=== PATIENT | female | born 1995 | race Asian ===

== ENCOUNTER 2016-12-14 12:44 | Emergency (ER) | payer OTHER ==
[2016-12-14 13:20] LABS: MEAN CORPUSCULAR HEMOGLOBIN 29.7 pg (27.0-33.0); MEAN CORPUSCULAR HGB CONC 34.3 g/dl (32.0-36.5); MEAN CORPUSCULAR VOLUME 86.4 fl (80.0-96.0); RED CELL DISTRIBUTION WIDTH 11.8 % (11.5-14.5)
[2016-12-14 13:49] LABS: ANION GAP 8 MEQ/L (8-16); BLOOD UREA NITROGEN 13 MG/DL (7-18); CARBON DIOXIDE LEVEL 26 MEQ/L (21-32); CHLORIDE LEVEL 106 MEQ/L (98-107); CREATININE FOR GFR 0.84 MG/DL (0.55-1.02); GLUCOSE, FASTING 92 MG/DL (70-105); POTASSIUM SERUM 3.9 MEQ/L (3.5-5.1); SODIUM LEVEL 140 MEQ/L (136-145)
[2016-12-14 13:58] LABS: CONTROL LINE HCG INT CTR LINE PRESENT
[2016-12-14 14:37] LABS: ALBUMIN/GLOBULIN RATIO 0.91 (1.00-1.93); ALKALINE PHOSPHATASE 105 U/L (45-117); ALT/SGPT 17 U/L (12-78); AST/SGOT 17 U/L (15-37); BILIRUBIN,DIRECT < 0.1 MG/DL (0.0-0.2); BILIRUBIN,TOTAL 0.3 MG/DL (0.2-1.0); TOTAL PROTEIN 8.4 GM/DL (6.4-8.2)
--- NOTE | 2016-12-14 14:44 | REP ---
Clinical: Epigastric and abdominal pain. Technique: Upright view of the chest with supine and upright views of the abdomen and pelvis. Findings: Frontal upright view of the chest demonstrates no acute cardiopulmonary process or free air below the diaphragm to suspect pneumoperitoneum. Supine and upright views of the abdomen and pelvis demonstrate nonspecific bowel gas pattern without obstruction or perforation. No organomegaly. No abnormal calcifications. Skeletal structures normal for age. Impression: Nonspecific bowel gas pattern. Signed by Iván Rock MD 12/14/2016 02:36 P
[2016-12-14] MEDS ORDERED: MAGNESIUM CITRATE 300 ML BTL As Ordered ONE (15:05)
--- NOTE | 2016-12-14 15:13 | EDDOCDS ---
Nurse's Notes [facility] Name: Camilla Mai Age: 21 yrs Sex: Female : 1995 Arrival Date: 12/14/2016 Time: 12:44 Bed 9 Private MD: NBA Gamez Diagnosis: Abdominal and pelvic pain Presentation: 12/14 12:49 Presenting complaint: Patient states: that she has had lower abd pain for the past ms18 week. Pt c/o nausea. Pt also states that she hasn't had her period yet and is concerned about . Pt states that she had a miscarriage last July and the at home tests have been neg. Risk factors: the patient reports no vaginal bleeding. Adult Sepsis Screening: The patient does not have new or worsening altered mentation. Patient's respiratory rate is less than 22. Systolic blood pressure is greater than 100. Patient has a qSOFA score of 0- Negative Sepsis Screen. Suicide/Homicide risk assessment- the patient denies having any suicidal and/or homicidal ideations and does not present with any other emotional, behavioral or mental health complaints. 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 Transition of care: patient was not received from another setting of care. 12:49 Acuity: YAKELIN Level 3 ms18 12:49 Method Of Arrival: Walkin/Carried/Asstd ms18 Triage Assessment: 12:52 General: Appears in no apparent distress, uncomfortable, Behavior is appropriate for ms18 age, cooperative. Pain: Location: right lower quadrant and left lower quadrant Pain currently is 8 out of 10 on a pain scale. HIV screening NA for this visit Offered previously. The patient is triaged at the bedside. See Assessment in Nurses Notes section of ED record. Neurological: No deficits noted. Respiratory: Airway is patent Respiratory effort is even, unlabored. GI: Abdomen is non- distended Reports lower abdominal pain, nausea. Derm: Skin is pink, warm & dry. 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 none - PMHx: none; - PSHx: D & C; - Social history: Smoking status: Patient states was never smoker of tobacco. No barriers to communication noted, The patient speaks fluent Solomon Islander. - Family history: Not pertinent. - : The pt / caregiver states he / she is not on anticoagulants. Home medication list is obtained from the patient. - Exposure Risk Screening:: None identified. Screenin:19 Screening information is obtained from the patient. Fall risk: No risks identified. kc3 Assistance ADL's: requires no assistance with activities of daily living. Abuse/DV Screen: The patient / caregiver reports he/she is: not in a situation that causes fear, pain or injury. Nutritional screening: No deficits noted. home support is adequate. 15:12 Advance Directives: Currently, there is no health care proxy. kc3 Assessment: 13:18 General: Appears in no apparent distress, comfortable, Behavior is appropriate for age, kc3 cooperative. Pain: Location: left lower quadrant and right lower quadrant Pain currently is 8 out of 10 on a pain scale. Neurological: Reports dizziness. Respiratory: Respiratory effort is even, unlabored. GI: Abdomen is flat, Bowel sounds present X 4 quads. Abd is soft and non tender Reports nausea. Derm: Skin is normal. 15:10 General: Appears in no apparent distress, comfortable, Behavior is appropriate for age, kc3 cooperative. Pain: Location: left lower quadrant and right lower quadrant. Respiratory: Respiratory effort is even, unlabored. Derm: Skin is normal. Vital Signs: 12:45 BP 131 / 78 RA Sitting (auto/reg); Pulse 69; Resp 20; Temp 98.4(O); Pulse Ox 98% on jrd R/A; Weight 64.41 kg (R); Height 5 ft. 2 in. (157.48 cm) (R); Pain 8/10; 15:11 BP 117 / 68; Pulse 69; Resp 18; Temp 98(O); Pulse Ox 98% on R/A; kc3 12:45 Body Mass Index 25.97 (64.41 kg, 157.48 cm) [facility] Vitals: 12:45 Log In Time: December 14, 2016 at 12:41. [facility] ED Course: 12:45 Patient visited by Cedric Diallo PCA. jrd 12:45 NBA Gamez is Private Physician. jrd 12:45 Patient moved to Waiting jrd 12:47 Patient visited by Cedric Diallo PCA. jrd 12:47 Patient moved to Pre RCE jrd 12:52 Triage Initiated ms18 13:02 [facility] ke 13:02 Patient visited by Dion Sales FNP. ke 13:02 Patient visited by Dion Sales FNP. ke 13:02 Patient moved to 9 ms18 13:09 Patient visited by Raman Pride. jml1 13:15 Urine Culture Sent. kc3 13:15 UA Sent. kc3 13:15 HCG,Serum Qualitative Sent. kc3 13:15 BMP Sent. kc3 13:15 CBC Sent. kc3 13:19 The patient / caregiver is instructed regarding the plan of care and ED course. kc3 13:39 Patient visited by Dion Sales FNP. ke 14:23 Patient visited by Dion Sales FNP. ke 14:42 [facility] [place] was scanned into [employer] and attached to record. mm15 14:47 Abdomen, Flat\E\Upright,PA Chest Returned. EDMS 14:49 Patient visited by Dion Sales FNP. ke 14:49 Patient name changed from Joninamarie\S\\S\Mai\S\ to Joninamarie\S\ \S\Mai. EDMS 14:52 Susan Baca, OB is Referral Physician. ke 15:12 No IV's were initiated during this patient's visit. No procedures done that require kc3 assistance. Administered Medications: 15:10 Drug: Magnesium Citrate 300 ml [magnesium citrate oral solution (300 mL)] Route: PO; kc3 Point of Care Testing: Urine : 13:09 hCG Reading: Negative; jml1 Ranges: Order Results: Lab Order: CBC; SPEC'M 12/14/16 13:15 Test: WHITE BLOOD COUNT; Value: 8.0; Range: 4.0-10.0; Units: K/mm3; Status: F Test: RED BLOOD COUNT; Value: 4.35; Range: 4.00-5.40; Units: M/mm3; Status: F Test: HEMOGLOBIN; Value: 12.9; Range: 12.0-16.0; Units: g/dl; Status: F Test: HEMATOCRIT; Value: 37.6; Range: 36.0-47.0; Units: %; Status: F Test: MEAN CORPUSCULAR VOLUME; Value: 86.4; Range: 80.0-96.0; Units: fl; Status: F Test: MEAN CORPUSCULAR HEMOGLOBIN; Value: 29.7; Range: 27.0-33.0; Units: pg; Status: F Test: MEAN CORPUSCULAR HGB CONC; Value: 34.3; Range: 32.0-36.5; Units: g/dl; Status: F Test: RED CELL DISTRIBUTION WIDTH; Value: 11.8; Range: 11.5-14.5; Units: %; Status: F Test: PLATELET COUNT, AUTOMATED; Value: 308; Range: 150-450; Units: k/mm3; Status: F Lab Order: [facility]; SPEC'M 12/14/16 13:15 Test: GLUCOSE, FASTING; Value: 92; Range: 70-105; Units: MG/DL; Status: F Test: BLOOD UREA NITROGEN; Value: 13; Range: 7-18; Units: MG/DL; Status: F Test: CREATININE FOR GFR; Value: 0.84; Range: 0.55-1.02; Units: MG/DL; Status: F Test: SODIUM LEVEL; Value: 140; Range: 136-145; Units: MEQ/L; Status: F Test: POTASSIUM SERUM; Value: 3.9; Range: 3.5-5.1; Units: MEQ/L; Status: F Test: CHLORIDE LEVEL; Value: 106; Range: 98-107; Units: MEQ/L; Status: F Test: CARBON DIOXIDE LEVEL; Value: 26; Range: 21-32; Units: MEQ/L; Status: F Test: ANION GAP; Value: 8; Range: 8-16; Units: MEQ/L; Status: F Test: CALCIUM LEVEL; Value: 9.0; Range: 8.5-10.1; Units: MG/DL; Status: F Test: AST/SGOT; Range: 15-37; Units: U/L; Status: I Test: ALT/SGPT; Range: 12-78; Units: U/L; Status: I Test: ALKALINE PHOSPHATASE; Range: 45-117; Units: U/L; Status: I Test: BILIRUBIN,TOTAL; Range: 0.2-1.0; Units: MG/DL; Status: I Test: BILIRUBIN,DIRECT; Range: 0.0-0.2; Units: MG/DL; Status: I Test: TOTAL PROTEIN; Range: 6.4-8.2; Units: GM/DL; Status: I Test: ALBUMIN; Range: 3.2-5.2; Units: GM/DL; Status: I Test: ALBUMIN/GLOBULIN RATIO; Range: 1.00-1.93; Status: I Lab Order: HCG,Serum Qualitative; SPEC' 12/14/16 13:15 Test: HCG, SERUM QUALITATIVE; Value: NEGATIVE; Range: NEGATIVE; Status: F Lab Order: UA; SPEC' 12/14/16 13:15 Test: APPEARANCE, URINE; Value: CLEAR; Range: CLEAR; Status: F Test: COLOR, URINE; Value: YELLOW; Range: YELLOW; Status: F Test: PH,URINE; Value: 6.0; Range: 5.0-9.0; Units: UNITS; Status: F Test: SPECIFIC GRAVITY URINE AUTO; Value: 1.017; Range: 1.002-1.035; Status: F Test: PROTEIN, URINE AUTO; Value: NEGATIVE; Range: NEGATIVE; Units: mg/dL; Status: F Test: GLUCOSE, URINE (UA) AUTO; Value: NEGATIVE; Range: NEGATIVE; Units: mg/dL; Status: F Test: KETONE, URINE AUTO; Value: NEGATIVE; Range: NEGATIVE; Units: mg/dL; Status: F Test: UROBILINOGEN, URINE AUTO; Value: 0.2; Range: 0.0-2.0; Units: mg/dL; Status: F Test: BILIRUBIN, URINE AUTO; Value: NEGATIVE; Range: NEGATIVE; Status: F Test: NITRITE, URINE AUTO; Value: NEGATIVE; Range: NEGATIVE; Status: F Test: LEUKOCYTE ESTERASE, URINE AUTO; Value: NEGATIVE; Range: NEGATIVE; Status: F Test: BLOOD, URINE BLOOD; Value: NEGATIVE; Range: NEGATIVE; Status: F Test: WBC, URINE AUTO; Value: 0; Range: 0-3; Units: /HPF; Status: F Test: RBC, URINE AUTO; Value: 1; Range: 0-3; Units: /HPF; Status: F Test: BACTERIA, URINE AUTO; Value: NEGATIVE; Range: NEGATIVE; Status: F Test: SQUAMOUS EPITHELIAL CELL UR AU; Value: 0; Range: 0-6; Units: /HPF; Status: F Test: MUCUS, URINE; Value: SMALL; Range: NEGATIVE; Status: F Test: HYALINE CAST, URINE AUTO; Value: 0; Range: 0-1; Units: /LPF; Status: F Lab Order: LIVER PROFILE; SPEC'M 12/14/16 13:15 Test: AST/SGOT; Value: 17; Range: 15-37; Units: U/L; Status: F Test: ALT/SGPT; Value: 17; Range: 12-78; Units: U/L; Status: F Test: ALKALINE PHOSPHATASE; Value: 105; Range: 45-117; Units: U/L; Status: F Test: BILIRUBIN,TOTAL; Value: 0.3; Range: 0.2-1.0; Units: MG/DL; Status: F Test: BILIRUBIN,DIRECT; Value: < 0.1; Range: 0.0-0.2; Units: MG/DL; Status: F Test: TOTAL PROTEIN; Value: 8.4; Range: 6.4-8.2; Abnormal: Above high normal; Units: GM/DL; Status: F Test: ALBUMIN; Value: 4.0; Range: 3.2-5.2; Units: GM/DL; Status: F Test: ALBUMIN/GLOBULIN RATIO; Value: 0.91; Range: 1.00-1.93; Abnormal: Below low normal; Status: F Radiology Order: Abdomen, Flat\E\Upright,PA Chest Test: Abdomen, Flat\E\Upright,PA Chest REASON FOR EXAMINATION: Abdomen Pain; Clinical: Epigastric and abdominal pain.; ; Technique: Upright view of the chest with supine and upright views of the; abdomen and pelvis.; ; Findings: Frontal upright view of the chest demonstrates no acute; cardiopulmonary process or free air below the diaphragm to suspect; pneumoperitoneum. Supine and upright views of the abdomen and pelvis demonstrate; nonspecific bowel gas pattern without obstruction or perforation. No; organomegaly. No abnormal calcifications. Skeletal structures normal for age.; ; Impression:; Nonspecific bowel gas pattern.; ; ; Signed by; Iván Rock MD 12/14/2016 02:36 P; Outcome: 14:52 Discharge ordered by Provider. ke 15:11 Discharge Assessment: Patient awake, alert and oriented x 3. No cognitive and/or kc3 functional deficits noted. Patient verbalized understanding of disposition instructions. patient administered narcotics - no. The following High Risk Discharge criteria are identified: None. Discharged to home ambulatory. Condition: stable. Discharge instructions given to patient, Instructed on discharge instructions, follow up and referral plans. medication usage, Demonstrated understanding of instructions, medications, Pt was receptive of discharge instructions/ teaching. Prescriptions given X 1. No special radiology studies were completed. Property :Personal belongings accompany Pt. 15:12 Patient left the ED. kc3 Signatures: Dispatcher [employer] EDNuris Yun, RN RN Dion Suarez FNP FNP ke Traver, Jamie jml1 Reymundo Lyn mm15 Khadijah Jaquez RN RN ms18 Cedric Diallo, MANAGER SMALL BUSINESS MANAGER SMALL BUSINESS Debbi Merritt,RN RN kc3 Corrections: (The following items were deleted from the chart) 14:27 14:24 LIVER PROFILE+LAB sent. davian LYLES MTDD
--- NOTE | 2016-12-14 15:13 | EDDOCDS ---
Physician Documentation [facility] Name: Camilla Mai Age: 21 yrs Sex: Female : 1995 Arrival Date: 12/14/2016 Time: 12:44 Bed 9 Private MD: Franco [facility] [place] Disposition: 12/14/16 14:52 Discharged to Home/Self Care. Impression: Abdominal and pelvic pain. - Condition is Stable. - Discharge Instructions: Abdominal Pain, Adult, Abdominal Pain, Pediatric. - Prescriptions for Zofran 4 mg Oral Tablet - take 1 tablet by ORAL route 4 times per day As needed; 10 tablet. - Medication Reconciliation, Local Pharmacy Hours form. - Follow up: Susan Baca, OB; When: 1 week; Reason: Recheck today's complaints, Continuance of care. - Problem is an ongoing problem. - Symptoms are unchanged. Historical: - Allergies: no known allergies; - Home Meds: 1. none - PMHx: none; - PSHx: D & C; - Social history: Smoking status: Patient states was never smoker of tobacco. No barriers to communication noted, The patient speaks fluent Gabonese. - Family history: Not pertinent. - : The pt / caregiver states he / she is not on anticoagulants. Home medication list is obtained from the patient. - Exposure Risk Screening:: None identified. 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 2 in. (157.48 cm) (R); Pain 8/10; 15:11 BP 117 / 68; Pulse 69; Resp 18; Temp 98(O); Pulse Ox 98% on R/A; kc3 12:45 Body Mass Index 25.97 (64.41 kg, 157.48 cm) jrd MDM: 13:07 CBC Ordered. EDMS 13:07 BMP Ordered. EDMS 13:07 HCG,Serum Qualitative Ordered. EDMS 13:07 UA Ordered. EDMS 13:07 Urine Culture Ordered. EDMS 13:39 CBC Reviewed. ke 13:39 UA Reviewed. ke 13:52 BMP Reviewed. ke 13:52 HCG,Serum Qualitative Reviewed. ke 14:01 BMP Reviewed. ke 14:01 HCG,Serum Qualitative Reviewed. ke 14:24 Abdomen, Flat\E\Upright,PA Chest Ordered. EDMS 14:27 Financial registration complete. mm15 14:27 LIVER PROFILE Ordered. EDMS 14:42 [facility] Payment Agreement was scanned into [employer] and attached to record. mm15 14:49 LIVER PROFILE Reviewed. ke 14:49 BMP Reviewed. ke 14:49 HCG,Serum Qualitative Reviewed. ke 14:49 Abdomen, Flat\E\Upright,PA Chest Reviewed. ke 14:53 Magnesium Citrate Liquid 300 ml PO once; Dispense home with pt. ordered. Point of Care Testing: Urine : 13:09 hCG Reading: Negative; jml1 Ranges: Administered Medications: 15:10 Drug: Magnesium Citrate 300 ml [magnesium citrate oral solution (300 mL)] Route: PO; kc3 Signatures: Dispatcher [employer] EDMS Dion Sales FNP CHASSIS ENGINEER Reymundo Dumas mm15 Khadijah Jaquez,RN RN ms18 Debbi Burnett RN RN kc3 The chart was reviewed and I authenticate all verbal orders and agree with the evaluation and treatment provided.Corrections: (The following items were deleted from the chart) 14:27 14:24 LIVER PROFILE+LAB ordered. EDIA EDMS Attachments: 14:42 [facility] Payment Agreement mm15 MTDD
--- NOTE | 2016-12-16 16:14 | EDDOCDS ---
Physician Documentation [facility] Name: Camilla Mai Age: 21 yrs Sex: Female : 1995 Arrival Date: 12/14/2016 Time: 12:44 Bed 9 Private MD: Franco [facility] [place]position: 12/14/16 14:52 Discharged to Home/Self Care. Impression: Abdominal and pelvic pain. - Condition is Stable. - Discharge Instructions: Abdominal Pain, Adult, Abdominal Pain, Pediatric. - Prescriptions for Zofran 4 mg Oral Tablet - take 1 tablet by ORAL route 4 times per day As needed; 10 tablet. - Medication Reconciliation, Local Pharmacy Hours form. - Follow up: Susan Baca, OB; When: 1 week; Reason: Recheck today's complaints, Continuance of care. - Problem is an ongoing problem. - Symptoms are unchanged. Historical: - Allergies: no known allergies; - Home Meds: 1. none - PMHx: none; - PSHx: D & C; - Social history: Smoking status: Patient states was never smoker of tobacco. No barriers to communication noted, The patient speaks fluent Botswanan. - Family history: Not pertinent. - : The pt / caregiver states he / she is not on anticoagulants. Home medication list is obtained from the patient. - Exposure Risk Screening:: None identified. 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 2 in. (157.48 cm) (R); Pain 8/10; 15:11 BP 117 / 68; Pulse 69; Resp 18; Temp 98(O); Pulse Ox 98% on R/A; kc3 12:45 Body Mass Index 25.97 (64.41 kg, 157.48 cm) jrd MDM: 13:07 CBC Ordered. EDMS 13:07 BMP Ordered. EDMS 13:07 HCG,Serum Qualitative Ordered. EDMS 13:07 UA Ordered. EDMS 13:07 Urine Culture Ordered. EDMS 13:39 CBC Reviewed. ke 13:39 UA Reviewed. ke 13:52 BMP Reviewed. ke 13:52 HCG,Serum Qualitative Reviewed. ke 14:01 BMP Reviewed. ke 14:01 HCG,Serum Qualitative Reviewed. ke 14:24 Abdomen, Flat\E\Upright,PA Chest Ordered. EDMS 14:27 Financial registration complete. mm15 14:27 LIVER PROFILE Ordered. EDMS 14:42 [facility] Payment Agreement was scanned into [employer] and attached to record. mm15 14:49 LIVER PROFILE Reviewed. ke 14:49 BMP Reviewed. ke 14:49 HCG,Serum Qualitative Reviewed. ke 14:49 Abdomen, Flat\E\Upright,PA Chest Reviewed. ke 14:53 Magnesium Citrate Liquid 300 ml PO once; Dispense home with pt. ordered. 12/15 09:38 T-Sheet-- Draft Copy was scanned into [employer] and attached to record. олег Point of Care Testing: Urine : 12/14 13:09 hCG Reading: Negative; jml1 Ranges: Administered Medications: 15:10 Drug: Magnesium Citrate 300 ml [magnesium citrate oral solution (300 mL)] Route: PO; kc3 Signatures: Dispatcher [employer] EDMS Gladys Cope, Reg Reg gb Dion Sales, GLASS TECHNOLOGIST GLASS TECHNOLOGIST Reymundo Dumas mm15 Khadijah Jaquez,RN RN ms18 Debbi Burnett,RN RN kc3 The chart was reviewed and I authenticate all verbal orders and agree with the evaluation and treatment provided.Corrections: (The following items were deleted from the chart) 14:24 LIVER PROFILE+LAB ordered. EDGA EDMS Attachments: 14:42 [facility] Payment Agreement 15 12/15 09:38 T-Sheet-- Draft Copy gb Chart Complete MTDD
--- NOTE | 2016-12-16 16:14 | EDDOCDS ---
Physician Documentation [facility] Name: Camilla Mai Age: 21 yrs Sex: Female : 1995 Arrival Date: 12/14/2016 Time: 12:44 Bed 9 Private MD: Franco [facility] [place]position: 12/14/16 14:52 Discharged to Home/Self Care. Impression: Abdominal and pelvic pain. - Condition is Stable. - Discharge Instructions: Abdominal Pain, Adult, Abdominal Pain, Pediatric. - Prescriptions for Zofran 4 mg Oral Tablet - take 1 tablet by ORAL route 4 times per day As needed; 10 tablet. - Medication Reconciliation, Local Pharmacy Hours form. - Follow up: Susan Baca, OB; When: 1 week; Reason: Recheck today's complaints, Continuance of care. - Problem is an ongoing problem. - Symptoms are unchanged. Historical: - Allergies: no known allergies; - Home Meds: 1. none - PMHx: none; - PSHx: D & C; - Social history: Smoking status: Patient states was never smoker of tobacco. No barriers to communication noted, The patient speaks fluent Faroese. - Family history: Not pertinent. - : The pt / caregiver states he / she is not on anticoagulants. Home medication list is obtained from the patient. - Exposure Risk Screening:: None identified. 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 2 in. (157.48 cm) (R); Pain 8/10; 15:11 BP 117 / 68; Pulse 69; Resp 18; Temp 98(O); Pulse Ox 98% on R/A; kc3 12:45 Body Mass Index 25.97 (64.41 kg, 157.48 cm) jrd MDM: 13:07 CBC Ordered. EDMS 13:07 BMP Ordered. EDMS 13:07 HCG,Serum Qualitative Ordered. EDMS 13:07 UA Ordered. EDMS 13:07 Urine Culture Ordered. EDMS 13:39 CBC Reviewed. ke 13:39 UA Reviewed. ke 13:52 BMP Reviewed. ke 13:52 HCG,Serum Qualitative Reviewed. ke 14:01 BMP Reviewed. ke 14:01 HCG,Serum Qualitative Reviewed. ke 14:24 Abdomen, Flat\E\Upright,PA Chest Ordered. EDMS 14:27 Financial registration complete. mm15 14:27 LIVER PROFILE Ordered. EDMS 14:42 [facility] Payment Agreement was scanned into [employer] and attached to record. mm15 14:49 LIVER PROFILE Reviewed. ke 14:49 BMP Reviewed. ke 14:49 HCG,Serum Qualitative Reviewed. ke 14:49 Abdomen, Flat\E\Upright,PA Chest Reviewed. ke 14:53 Magnesium Citrate Liquid 300 ml PO once; Dispense home with pt. ordered. 12/15 09:38 T-Sheet-- Draft Copy was scanned into [employer] and attached to record. олег Point of Care Testing: Urine : 12/14 13:09 hCG Reading: Negative; jml1 Ranges: Administered Medications: 15:10 Drug: Magnesium Citrate 300 ml [magnesium citrate oral solution (300 mL)] Route: PO; kc3 Signatures: Dispatcher [employer] EDMS Gladys Cope, Reg Reg gb Dion Sales, SOCIAL CONTACT WORKER SOCIAL CONTACT WORKER Reymundo Dumas mm15 Khadijah Jaquez,RN RN ms18 Debbi Burnett,RN RN kc3 The chart was reviewed and I authenticate all verbal orders and agree with the evaluation and treatment provided.Corrections: (The following items were deleted from the chart) 14:24 LIVER PROFILE+LAB ordered. EDTX EDMS Attachments: 14:42 [facility] Payment Agreement 15 12/15 09:38 T-Sheet-- Draft Copy gb Chart Complete MTDD
--- NOTE | 2016-12-16 16:14 | EDDOCDS ---
Nurse's Notes [facility] Name: Camilla Mai Age: 21 yrs Sex: Female : 1995 Arrival Date: 12/14/2016 Time: 12:44 Bed 9 Private MD: NBA Gamez Diagnosis: Abdominal and pelvic pain Presentation: 12/14 12:49 Presenting complaint: Patient states: that she has had lower abd pain for the past ms18 week. Pt c/o nausea. Pt also states that she hasn't had her period yet and is concerned about . Pt states that she had a miscarriage last July and the at home tests have been neg. Risk factors: the patient reports no vaginal bleeding. Adult Sepsis Screening: The patient does not have new or worsening altered mentation. Patient's respiratory rate is less than 22. Systolic blood pressure is greater than 100. Patient has a qSOFA score of 0- Negative Sepsis Screen. Suicide/Homicide risk assessment- the patient denies having any suicidal and/or homicidal ideations and does not present with any other emotional, behavioral or mental health complaints. 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 Transition of care: patient was not received from another setting of care. 12:49 Acuity: YAKELIN Level 3 ms18 12:49 Method Of Arrival: Walkin/Carried/Asstd ms18 Triage Assessment: 12:52 General: Appears in no apparent distress, uncomfortable, Behavior is appropriate for ms18 age, cooperative. Pain: Location: right lower quadrant and left lower quadrant Pain currently is 8 out of 10 on a pain scale. HIV screening NA for this visit Offered previously. The patient is triaged at the bedside. See Assessment in Nurses Notes section of ED record. Neurological: No deficits noted. Respiratory: Airway is patent Respiratory effort is even, unlabored. GI: Abdomen is non- distended Reports lower abdominal pain, nausea. Derm: Skin is pink, warm & dry. POWER GENERATION ENGINEER: 12:52 LMP 11/07/2016 ms18 Historical: - Allergies: no known allergies; - Home Meds: 1. none - PMHx: none; - PSHx: D & C; - Social history: Smoking status: Patient states was never smoker of tobacco. No barriers to communication noted, The patient speaks fluent Wallisian. - Family history: Not pertinent. - : The pt / caregiver states he / she is not on anticoagulants. Home medication list is obtained from the patient. - Exposure Risk Screening:: None identified. Screenin:19 Screening information is obtained from the patient. Fall risk: No risks identified. kc3 Assistance ADL's: requires no assistance with activities of daily living. Abuse/DV Screen: The patient / caregiver reports he/she is: not in a situation that causes fear, pain or injury. Nutritional screening: No deficits noted. home support is adequate. 15:12 Advance Directives: Currently, there is no health care proxy. kc3 Assessment: 13:18 General: Appears in no apparent distress, comfortable, Behavior is appropriate for age, kc3 cooperative. Pain: Location: left lower quadrant and right lower quadrant Pain currently is 8 out of 10 on a pain scale. Neurological: Reports dizziness. Respiratory: Respiratory effort is even, unlabored. GI: Abdomen is flat, Bowel sounds present X 4 quads. Abd is soft and non tender Reports nausea. Derm: Skin is normal. 15:10 General: Appears in no apparent distress, comfortable, Behavior is appropriate for age, kc3 cooperative. Pain: Location: left lower quadrant and right lower quadrant. Respiratory: Respiratory effort is even, unlabored. Derm: Skin is normal. Vital Signs: 12:45 BP 131 / 78 RA Sitting (auto/reg); Pulse 69; Resp 20; Temp 98.4(O); Pulse Ox 98% on jrd R/A; Weight 64.41 kg (R); Height 5 ft. 2 in. (157.48 cm) (R); Pain 8/10; 15:11 BP 117 / 68; Pulse 69; Resp 18; Temp 98(O); Pulse Ox 98% on R/A; kc3 12:45 Body Mass Index 25.97 (64.41 kg, 157.48 cm) [facility] Vitals: 12:45 Log In Time: December 14, 2016 at 12:41. [facility] ED Course: 12:45 Patient visited by Cedric Diallo PCA. jrd 12:45 NBA Gamez is Private Physician. jrd 12:45 Patient moved to Waiting jrd 12:47 Patient visited by Cedric Diallo PCA. jrd 12:47 Patient moved to Pre RCE jrd 12:52 Triage Initiated ms18 13:02 [facility]. ke 13:02 Patient visited by Dion Sales FNP. ke 13:02 Patient visited by Dion Sales FNP. ke 13:02 Patient moved to 9 ms18 13:09 Patient visited by Raman Pride. jml1 13:15 Urine Culture Sent. kc3 13:15 UA Sent. kc3 13:15 HCG,Serum Qualitative Sent. kc3 13:15 BMP Sent. kc3 13:15 CBC Sent. kc3 13:19 The patient / caregiver is instructed regarding the plan of care and ED course. kc3 13:39 Patient visited by Dion Sales FNP. ke 14:23 Patient visited by Dion Sales FNP. ke 14:42 [facility] Payment Agreement was scanned into [employer] and attached to record. mm15 14:47 Abdomen, Flat\E\Upright,PA Chest Returned. EDMS 14:49 Patient visited by Dion Sales FNP. ke 14:49 Patient name changed from Joninamarie\S\\S\Mai\S\ to Joninamarie\S\ \S\Mai. EDMS 14:52 Susan Baca, OB is Referral Physician. ke 15:12 No IV's were initiated during this patient's visit. No procedures done that require kc3 assistance. 12/15 09:38 T-Sheet-- Draft Copy was scanned into [employer] and attached to record. gb Administered Medications: 12/14 15:10 Drug: Magnesium Citrate 300 ml [magnesium citrate oral solution (300 mL)] Route: PO; kc3 Point of Care Testing: Urine : 13:09 hCG Reading: Negative; jml1 Ranges: Order Results: Lab Order: CBC; SPEC'M 12/14/16 13:15 Test: WHITE BLOOD COUNT; Value: 8.0; Range: 4.0-10.0; Units: K/mm3; Status: F Test: RED BLOOD COUNT; Value: 4.35; Range: 4.00-5.40; Units: M/mm3; Status: F Test: HEMOGLOBIN; Value: 12.9; Range: 12.0-16.0; Units: g/dl; Status: F Test: HEMATOCRIT; Value: 37.6; Range: 36.0-47.0; Units: %; Status: F Test: MEAN CORPUSCULAR VOLUME; Value: 86.4; Range: 80.0-96.0; Units: fl; Status: F Test: MEAN CORPUSCULAR HEMOGLOBIN; Value: 29.7; Range: 27.0-33.0; Units: pg; Status: F Test: MEAN CORPUSCULAR HGB CONC; Value: 34.3; Range: 32.0-36.5; Units: g/dl; Status: F Test: RED CELL DISTRIBUTION WIDTH; Value: 11.8; Range: 11.5-14.5; Units: %; Status: F Test: PLATELET COUNT, AUTOMATED; Value: 308; Range: 150-450; Units: k/mm3; Status: F Lab Order: [facility]; SPEC'M 12/14/16 13:15 Test: GLUCOSE, FASTING; Value: 92; Range: 70-105; Units: MG/DL; Status: F Test: BLOOD UREA NITROGEN; Value: 13; Range: 7-18; Units: MG/DL; Status: F Test: CREATININE FOR GFR; Value: 0.84; Range: 0.55-1.02; Units: MG/DL; Status: F Test: SODIUM LEVEL; Value: 140; Range: 136-145; Units: MEQ/L; Status: F Test: POTASSIUM SERUM; Value: 3.9; Range: 3.5-5.1; Units: MEQ/L; Status: F Test: CHLORIDE LEVEL; Value: 106; Range: 98-107; Units: MEQ/L; Status: F Test: CARBON DIOXIDE LEVEL; Value: 26; Range: 21-32; Units: MEQ/L; Status: F Test: ANION GAP; Value: 8; Range: 8-16; Units: MEQ/L; Status: F Test: CALCIUM LEVEL; Value: 9.0; Range: 8.5-10.1; Units: MG/DL; Status: F Test: AST/SGOT; Range: 15-37; Units: U/L; Status: I Test: ALT/SGPT; Range: 12-78; Units: U/L; Status: I Test: ALKALINE PHOSPHATASE; Range: 45-117; Units: U/L; Status: I Test: BILIRUBIN,TOTAL; Range: 0.2-1.0; Units: MG/DL; Status: I Test: BILIRUBIN,DIRECT; Range: 0.0-0.2; Units: MG/DL; Status: I Test: TOTAL PROTEIN; Range: 6.4-8.2; Units: GM/DL; Status: I Test: ALBUMIN; Range: 3.2-5.2; Units: GM/DL; Status: I Test: ALBUMIN/GLOBULIN RATIO; Range: 1.00-1.93; Status: I Lab Order: HCG,Serum Qualitative; SPEC'M 12/14/16 13:15 Test: HCG, SERUM QUALITATIVE; Value: NEGATIVE; Range: NEGATIVE; Status: F Lab Order: UA; SPEC'M 12/14/16 13:15 Test: APPEARANCE, URINE; Value: CLEAR; Range: CLEAR; Status: F Test: COLOR, URINE; Value: YELLOW; Range: YELLOW; Status: F Test: PH,URINE; Value: 6.0; Range: 5.0-9.0; Units: UNITS; Status: F Test: SPECIFIC GRAVITY URINE AUTO; Value: 1.017; Range: 1.002-1.035; Status: F Test: PROTEIN, URINE AUTO; Value: NEGATIVE; Range: NEGATIVE; Units: mg/dL; Status: F Test: GLUCOSE, URINE (UA) AUTO; Value: NEGATIVE; Range: NEGATIVE; Units: mg/dL; Status: F Test: KETONE, URINE AUTO; Value: NEGATIVE; Range: NEGATIVE; Units: mg/dL; Status: F Test: UROBILINOGEN, URINE AUTO; Value: 0.2; Range: 0.0-2.0; Units: mg/dL; Status: F Test: BILIRUBIN, URINE AUTO; Value: NEGATIVE; Range: NEGATIVE; Status: F Test: NITRITE, URINE AUTO; Value: NEGATIVE; Range: NEGATIVE; Status: F Test: LEUKOCYTE ESTERASE, URINE AUTO; Value: NEGATIVE; Range: NEGATIVE; Status: F Test: BLOOD, URINE BLOOD; Value: NEGATIVE; Range: NEGATIVE; Status: F Test: WBC, URINE AUTO; Value: 0; Range: 0-3; Units: /HPF; Status: F Test: RBC, URINE AUTO; Value: 1; Range: 0-3; Units: /HPF; Status: F Test: BACTERIA, URINE AUTO; Value: NEGATIVE; Range: NEGATIVE; Status: F Test: SQUAMOUS EPITHELIAL CELL UR AU; Value: 0; Range: 0-6; Units: /HPF; Status: F Test: MUCUS, URINE; Value: SMALL; Range: NEGATIVE; Status: F Test: HYALINE CAST, URINE AUTO; Value: 0; Range: 0-1; Units: /LPF; Status: F Lab Order: Urine Culture; SPEC'M 12/14/16 13:15 Test: URINE CULTURE; Value: <EXTERNAL COMMENT eCWMed> FULL REPORT IN LAB NOTES (eCW and Medent).; Status: F Test: URINE CULTURE; Value: URINE CULTURE RESULT SPECIMEN APPEARS CONTAMINATED; Status: F Lab Order: LIVER PROFILE; SPEC'M 12/14/16 13:15 Test: AST/SGOT; Value: 17; Range: 15-37; Units: U/L; Status: F Test: ALT/SGPT; Value: 17; Range: 12-78; Units: U/L; Status: F Test: ALKALINE PHOSPHATASE; Value: 105; Range: 45-117; Units: U/L; Status: F Test: BILIRUBIN,TOTAL; Value: 0.3; Range: 0.2-1.0; Units: MG/DL; Status: F Test: BILIRUBIN,DIRECT; Value: < 0.1; Range: 0.0-0.2; Units: MG/DL; Status: F Test: TOTAL PROTEIN; Value: 8.4; Range: 6.4-8.2; Abnormal: Above high normal; Units: GM/DL; Status: F Test: ALBUMIN; Value: 4.0; Range: 3.2-5.2; Units: GM/DL; Status: F Test: ALBUMIN/GLOBULIN RATIO; Value: 0.91; Range: 1.00-1.93; Abnormal: Below low normal; Status: F Radiology Order: Abdomen, Flat\E\Upright,PA Chest Test: Abdomen, Flat\E\Upright,PA Chest REASON FOR EXAMINATION: Abdomen Pain; Clinical: Epigastric and abdominal pain.; ; Technique: Upright view of the chest with supine and upright views of the; abdomen and pelvis.; ; Findings: Frontal upright view of the chest demonstrates no acute; cardiopulmonary process or free air below the diaphragm to suspect; pneumoperitoneum. Supine and upright views of the abdomen and pelvis demonstrate; nonspecific bowel gas pattern without obstruction or perforation. No; organomegaly. No abnormal calcifications. Skeletal structures normal for age.; ; Impression:; Nonspecific bowel gas pattern.; ; ; Signed by; Iván Rock MD 12/14/2016 02:36 P; Outcome: 14:52 Discharge ordered by Provider. sara 15:11 Discharge Assessment: Patient awake, alert and oriented x 3. No cognitive and/or kc3 functional deficits noted. Patient verbalized understanding of disposition instructions. patient administered narcotics - no. The following High Risk Discharge criteria are identified: None. Discharged to home ambulatory. Condition: stable. Discharge instructions given to patient, Instructed on discharge instructions, follow up and referral plans. medication usage, Demonstrated understanding of instructions, medications, Pt was receptive of discharge instructions/ teaching. Prescriptions given X 1. No special radiology studies were completed. Property :Personal belongings accompany Pt. 15:12 Patient left the ED. kc3 Signatures: Dispatcher [employer] EDMS Nuris Momin, RN RN dls Prisca, Gladys, Reg Reg gb Dion Sales, AUTOMATIC DISPENSER MECHANIC AUTOMATIC DISPENSER MECHANIC Raman Cole jml1 Reymundo Lyn mm15 Khadijah Jaquez,RN RN ms18 Cedric Diallo, LUMBER CHECKER LUMBER CHECKER d Debbi Burnett,RN RN kc3 Corrections: (The following items were deleted from the chart) 14:27 14:24 LIVER PROFILE+LAB sent. [facility] EDNH Chart Complete MTDD
== END 2016-12-14 15:12 | disposition home or self-care (01) ==
LOC: M ED 12:44
DX: R10.2 Pelvic and perineal pain (principal)

== ENCOUNTER 2017-05-14 06:41 | Emergency (ER) | payer OTHER ==
[~2017-05-14] VITALS: Ht 157.5 cm; Wt 64.8 kg
[2017-05-14] MEDS ORDERED: PRENTAB40 PO (06:53)
[2017-05-14] MEDS ORDERED: NS 1,000 ML IV ONE (07:30)
[2017-05-14 07:48] LABS: BASO % 0.4 % (0.0-1.0); EOS # 0.2 K/mm3 (0.0-0.50); EOS % 1.8 % (0.0-3.0); LARGE UNSTAINED CELL # 0.1 K/mm3 (0.0-0.4); LARGE UNSTAINED CELL % 1.6 % (0.0-4.0); LYMPH # 1.4 K/mm3 (1.5-6.5); LYMPH % 15.6 % (24.0-44.0); MEAN CORPUSCULAR HEMOGLOBIN 29.6 pg (27.0-33.0); MEAN CORPUSCULAR HGB CONC 34.5 g/dl (32.0-36.5); MEAN CORPUSCULAR VOLUME 85.8 fl (80.0-96.0); MONO # 0.4 K/mm3 (0.0-0.8); MONO % 4.5 % (0.0-5.0); NEUTROPHILS # 6.4 K/mm3 (1.8-7.7); NEUTROPHILS % 76.1 % (36.0-66.0); PLATELET COUNT, AUTOMATED 279 k/mm3 (150-450); RED CELL DISTRIBUTION WIDTH 11.9 % (11.5-14.5); WHITE BLOOD COUNT 8.4 K/mm3 (4.0-10.0)
[2017-05-14 08:17] LABS: ALBUMIN 3.7 GM/DL (3.2-5.2); ALBUMIN/GLOBULIN RATIO 0.86 (1.00-1.93); ALKALINE PHOSPHATASE 77 U/L (45-117); ALT/SGPT 15 U/L (12-78); ANION GAP 6 MEQ/L (8-16); AST/SGOT 12 U/L (15-37); BILIRUBIN,DIRECT 0.1 MG/DL (0.0-0.2); BILIRUBIN,TOTAL 0.6 MG/DL (0.2-1.0); BLOOD UREA NITROGEN 6 MG/DL (7-18); CALCIUM LEVEL 9.1 MG/DL (8.5-10.1); CARBON DIOXIDE LEVEL 26 MEQ/L (21-32); CHLORIDE LEVEL 104 MEQ/L (98-107); CREATININE FOR GFR 0.57 MG/DL (0.55-1.02); GLUCOSE, FASTING 78 MG/DL (70-105); SODIUM LEVEL 136 MEQ/L (136-145)
--- NOTE | 2017-05-14 09:00 | REP ---
First trimester obstetric ultrasound, emergency room, stat request: The study is performed with transabdominal and Doppler ultrasound assessment. There is an intrauterine gestational sac with a pole. There is cardiac activity, the heart rate is 169 beats per minute. The pole crown-rump length is 3.8 centimeters corresponding to 10 weeks 5 days gestational age. The FESTUS is 12/05/2017. There is no subchorionic hematoma. The maternal adnexa and cul-de-sac are unremarkable. With Doppler assessment there is vascular flow in both ovaries, the resistive index of the intraparenchymal arteries of the right ovary measuring 0.38 and left ovary 0.40. Signed by Tom Castro MD 05/14/2017 08:52 A
[2017-05-14] MEDS ORDERED: [UNRECOGNIZED DRUG - CODE] PV (10:20)
[2017-05-14 10:40] VITALS: BP 113/60
== END 2017-05-14 10:57 | disposition home or self-care (01) ==
LOC: M ED 06:41
DX: O23.591 Infection of other part of genital tract in pregnancy, first trimester (principal); B37.3 Candidiasis of vulva and vagina; O26.891 Other specified pregnancy related conditions, first trimester; R51 Headache; R42 Dizziness and giddiness; Z3A.10 10 weeks gestation of pregnancy; Z87.891 Personal history of nicotine dependence; Z79.899 Other long term (current) drug therapy

== ENCOUNTER 2017-06-07 17:02 | Inpatient (IN) | payer OTHER ==
[~2017-06-07] VITALS: Ht 157.5 cm; Wt 61.2 kg
[~2017-06-07 17:02] MED LIST: PRENTAB40 PO; [UNRECOGNIZED DRUG - CODE] PV
[2017-06-07 18:50] LABS: MEAN CORPUSCULAR HEMOGLOBIN 29.8 pg (27.0-33.0); MEAN CORPUSCULAR HGB CONC 34.9 g/dl (32.0-36.5); MEAN CORPUSCULAR VOLUME 85.2 fl (80.0-96.0); RED CELL DISTRIBUTION WIDTH 11.9 % (11.5-14.5); WHITE BLOOD COUNT 13.2 K/mm3 (4.0-10.0)
[2017-06-07] MEDS ORDERED: PRENCHW PO (19:11)
[2017-06-07 19:16] LABS: METHADONE URINE NEGATIVE (NEGATIVE)
[2017-06-07 19:25] LABS: ALBUMIN 3.9 GM/DL (3.2-5.2); ALBUMIN/GLOBULIN RATIO 0.93 (1.00-1.93); ALKALINE PHOSPHATASE 82 U/L (45-117); ALT/SGPT 12 U/L (12-78); ANION GAP 10 MEQ/L (8-16); AST/SGOT 14 U/L (15-37); BILIRUBIN,DIRECT 0.1 MG/DL (0.0-0.2); BILIRUBIN,TOTAL 0.3 MG/DL (0.2-1.0); BLOOD UREA NITROGEN 8 MG/DL (7-18); CALCIUM LEVEL 9.2 MG/DL (8.5-10.1); CARBON DIOXIDE LEVEL 24 MEQ/L (21-32); CHLORIDE LEVEL 107 MEQ/L (98-107); CREATININE FOR GFR 0.43 MG/DL (0.55-1.02); GLUCOSE, FASTING 78 MG/DL (70-105); POTASSIUM SERUM 3.9 MEQ/L (3.5-5.1); SODIUM LEVEL 141 MEQ/L (136-145); TOTAL PROTEIN 8.1 GM/DL (6.4-8.2)
[2017-06-07] MEDS ORDERED: ACETAMINOPHEN TAB 650MG DOSE (2X325MG) PO ONE ×2 (20:15)
[2017-06-07] MEDS ORDERED: ONDANSETRON 4 MG ORAL DISINTEGRATING TAB (S0181) PO ONE (20:45)
[2017-06-07 21:22] VITALS: BP 117/74
[2017-06-07 21:44] LABS: CONTROL LINE HCG INT CTR LINE PRESENT
[2017-06-07 22:37] LABS: T UPTAKE 27 % (30-39); THYROXINE (T4) 20.9 UG/DL (6.0-11.6)
[2017-06-08 06:28] VITALS: BP 136/63
[2017-06-08 07:18] LABS: BASO % 0.2 % (0.0-1.0); EOS # 0.2 K/mm3 (0.0-0.50); EOS % 1.9 % (0.0-3.0); LARGE UNSTAINED CELL # 0.2 K/mm3 (0.0-0.4); LYMPH % 21.2 % (24.0-44.0); MEAN CORPUSCULAR HEMOGLOBIN 29.7 pg (27.0-33.0); MEAN CORPUSCULAR HGB CONC 34.8 g/dl (32.0-36.5); MEAN CORPUSCULAR VOLUME 85.3 fl (80.0-96.0); MONO # 0.4 K/mm3 (0.0-0.8); MONO % 5.3 % (0.0-5.0); NEUTROPHILS # 5.8 K/mm3 (1.8-7.7); NEUTROPHILS % 69.3 % (36.0-66.0); PLATELET COUNT, AUTOMATED 297 k/mm3 (150-450); WHITE BLOOD COUNT 8.4 K/mm3 (4.0-10.0)
[2017-06-08] MEDS: PRENATAL VITAMINS CHEWABLE TABLET PO SCH (10:31)
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
[2017-06-08 18:00] VITALS: BP 110/59
--- NOTE | 2017-06-09 07:22 | HPE ---
DATE OF ADMISSION: 06/07/2017 Please refer to psychiatric history and evaluation for further details on this admission. This examination and history is intended for medical issues which may need treatment, followup or consult on this 21-year-old female. ALLERGIES: No known allergy. PRIMARY CARE PROVIDER: [facility]. OB PROVIDER: Susan Baca OB. SOCIAL HISTORY: She is . She is 14 weeks . 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 Her is a soldier active duty at [place]. ETOH none. Smokes none. Recreational drug use none. PAST MEDICAL HISTORY: Negative. PAST SURGICAL HISTORY: Dilation and curettage (D C) July 2016. HOME MEDICATIONS: - vitamin one by mouth daily FAMILY HISTORY: Noncontributory. LABORATORY STUDIES: WBC 13.2, hemoglobin 12.7, hematocrit 36.2, platelets 298. Electrolytes normal. TSH 0.117. Toxicology screen negative. Ten systems review was done and other than being depressed was unremarkable. PHYSICAL EXAMINATION: 21-year-old cooperative female in no acute distress. Height 62 inches, weight 61.4 kg. BMI 24.8. The patient is alert and oriented times three. Pupils equal and reactive to light. Extraocular movements intact. Cornea and sclera clear. Conjunctiva normal. No facial asymmetry. Pharynx, tongue and gums pink and moist. Tongue is midline. Neck is supple, without lymphadenopathy. No thyromegaly. No goiter. Chest clear to auscultation, without wheeze or retraction. Heart is regular. Abdomen soft, nontender. No masses, no bruits. No organomegaly. Bowel sounds positive. Genitourinary ()/Rectal: Not done. Extremities show equal strength, full range of motion. No cyanosis, clubbing or edema. Peripheral pulses equal and palpable bilaterally. Skin is warm and dry. IMPRESSION/PLAN: Psychiatric plan per psychiatry. vitamin one by mouth daily. Low TSH. Will do a thyroid profile in the a.m. Repeat CBC in a.m. Slightly elevated white count may be secondary to stress. Will repeat in a.m. Thyroid profile in a.m. 14 weeks , to follow with Susan Baca OB.
[2017-06-09 07:38] VITALS: BP 106/60
[2017-06-09] MEDS: FLUoxetine 10 MG CAP PO SCH (08:17)
[2017-06-09] MEDS: PRENATAL VITAMINS CHEWABLE TABLET PO SCH (08:17)
[2017-06-09 18:00] VITALS: BP 117/66
--- NOTE | 2017-06-09 19:11 | MHIPNPDOC ---
[facility] Progress Note Progress Note DATE OF SERVICE: 06/09/17 HISTORY: Patient was seen and evaluated for her progress in the inpatient psychiatry unit and evaluation. Patient reported that she has been feeling less depressed and anxious after seeing her visiting yesterday night. She reported that she has written letter to her , wanting to reconcile with him and he also is interested in going for marital counseling once patient is discharged from the inpatient unit. She reported that she has started taking Prozac and initially she was getting some nausea. Denies any vomiting but willing to continue the current treatment. She reported that she read about the medications and willing to continue the medications. She denies any sleep or appetite problems, but continued to have less motivation. She denies any suicidal or homicidal ideations, but remains fragile. She reported that her mood has been more stable in the inpatient unit but reported that she usually the stresses around her, including her work and conflicts with the , which triggers her to help mood swings. VITAL SIGNS: See below. CURRENT MEDICATIONS: Prozac 10mg daily, vitamins, FA MENTAL STATUS EXAMINATION: 21yo female sitting in the chair, looks appropriate for the stated age, fair hygiene and grooming, normal psychomotor activities, no abnormal movements, cooperative with fair eye contact, speech is soft, normal in rate, rhythm, low in amount and prosody, mood is 'sad', affect constricted & at times tearful and mood congruent, thought process is logical and goal directed, denies current suicidal and homicidal ideations, denies hallucinations, no delusions elicited, aaox3, fair immediate, short term and watermaster memory, limited insight, judgement and impulse control DIAGNOSES: 1. Major depression disorder with no psychosis MANAGEMENT PLAN: Continue current treatment. TIME SPENT: 15 minutes. Vital Signs Vital Signs Date Time Temp Pulse Resp B/P (MAP) Pulse Ox O2 Delivery O2 Flow Rate FiO2 06/09/17 18:00 98.5 74 16 117/66 (83) Room Air 06/07/17 20:22 98 Allergies Coded Allergies: No Known Allergies (Unverified , 07/25/16) YUSUF LOPEZ MD Jun 09, 2017 19:11
[2017-06-10 06:57] VITALS: BP 121/63
[2017-06-10] MEDS: PRENATAL VITAMINS CHEWABLE TABLET PO SCH (07:59)
[2017-06-10] MEDS: FLUoxetine 10 MG CAP PO SCH (07:59)
--- NOTE | 2017-06-10 10:00 | IPNPDOC ---
Date Seen The patient was seen on 06/10/17. Progress Note ATTENDING: Dr. Sourav Escobar PCP: [facility] HPI:21year old F inpatient at [facility] related to depression. Requested to re evaluate the pt today as she was reporting abdominal pain. Pt is currently 14 weeks . Follows with Henry Baca WIRELESS COMMUNICATIONS ENGINEER. Next appt scheduled 06/26/17. Pt states she became upset this AM and began to have lower abdominal discomfort. It is improved now but still some remaining across lower abdomen. Denies urinary complaints, dysuria, frequency, hematuria. No vaginal bleeding/ discharge. Denies diarrhea, nausea, vomiting. Reports occasional constipation. Denies any fevers, chills, weakness, fatigue, Headache, Chest Pain, Shortness of breath, cough, palpitations, or changes in bowel or bladder habits. PMHx: miscarriage 08/03 depression PSHX: D&C 08/03 PE: GEN: 21yoF, appears stated age. Well-nourished, well developed. Teary, upset. Alert and oriented x 3. HEENT: Normocephalic, atraumatic. Sclera are nonicteric. Conjunctiva without injection. Nose midline. No facial asymmetry. Moist mucous membranes. Neck supple, trachea midline. CHEST: Regular rate and rhythm, +S1, +S2 LUNGS: Clear to auscultation bilaterally. No wheezes, rales, or rhonchi. Breathing appears symmetric and easy. Patient is speaking in full sentences. No accessory muscle use. ABD: Round, soft, Mild TTP LLQ, RLQ. +Bowel sounds throughout. No rebound or guarding. No costovertebral angle tenderness. EXT: No lower extremity edema appreciated. SKIN: [place], dry, warm. No rashes. NEURO: Alert and oriented x 3. No focal deficits appreciated. A&P: 21year old F inpatient at [facility] related to depression 1. Psych. Plan per Psychiatry. Obtain baseline EKG to assure the safety of psychiatric medications as they can prolong the QT interval. 2. . Update HCG. Request OB U/S as pt is reporting abdominal pain. 3. Abdominal pain. CBCd/CMP pending. HCG pending. Request OB U/S. Check UA/UC. 4. Follow up with PCP on discharge. 5. Follow up with Susan Baca WIRELESS COMMUNICATIONS ENGINEER at discharge. 6. Staff member Drea BROOKS present throughout exam. VS, I&O, 24H, Fishbone Vital Signs/I&O Vital Signs Date Time Temp Pulse Resp B/P (MAP) Pulse Ox O2 Delivery O2 Flow Rate FiO2 06/10/17 06:57 97.5 85 16 121/63 (82) 06/09/17 18:00 Room Air 06/07/17 20:22 98 Tatyana Quick Jun 10, 2017 10:00
[2017-06-10 11:25] LABS: BASO % 0.2 % (0.0-1.0); EOS # 0.1 K/mm3 (0.0-0.50); EOS % 1.6 % (0.0-3.0); LARGE UNSTAINED CELL # 0.1 K/mm3 (0.0-0.4); LARGE UNSTAINED CELL % 1.7 % (0.0-4.0); LYMPH # 1.6 K/mm3 (1.5-6.5); LYMPH % 17.9 % (24.0-44.0); MEAN CORPUSCULAR HEMOGLOBIN 30.3 pg (27.0-33.0); MEAN CORPUSCULAR VOLUME 86.7 fl (80.0-96.0); MONO # 0.3 K/mm3 (0.0-0.8); NEUTROPHILS # 6.2 K/mm3 (1.8-7.7); NEUTROPHILS % 74.5 % (36.0-66.0); PLATELET COUNT, AUTOMATED 277 k/mm3 (150-450); RED CELL DISTRIBUTION WIDTH 12.1 % (11.5-14.5); WHITE BLOOD COUNT 8.3 K/mm3 (4.0-10.0)
[2017-06-10 12:08] LABS: ALBUMIN 3.7 GM/DL (3.2-5.2); ALBUMIN/GLOBULIN RATIO 0.97 (1.00-1.93); ALKALINE PHOSPHATASE 75 U/L (45-117); ALT/SGPT 12 U/L (12-78); ANION GAP 10 MEQ/L (8-16); AST/SGOT 11 U/L (15-37); BILIRUBIN,TOTAL 0.2 MG/DL (0.2-1.0); BLOOD UREA NITROGEN 7 MG/DL (7-18); CARBON DIOXIDE LEVEL 24 MEQ/L (21-32); CHLORIDE LEVEL 106 MEQ/L (98-107); CREATININE FOR GFR 0.53 MG/DL (0.55-1.02); GLUCOSE, FASTING 116 MG/DL (70-105); POTASSIUM SERUM 3.9 MEQ/L (3.5-5.1); SODIUM LEVEL 140 MEQ/L (136-145); TOTAL PROTEIN 7.5 GM/DL (6.4-8.2)
--- NOTE | 2017-06-10 15:04 | ECGEPIP ---
Stationary ECG Study [facility] Test Date: 2017-06-10 Pat Name: SUKHDEEP LEON Department: Room: [place] [address] Gender: F Can Sorter: NUZHAT : 1995 Requested By: Tatyana Quick Order Number: [id number] Reading MD: Michelle Burgos Measurements Intervals [place] Rate: 76 P: 55 NH: 146 QRS: 63 QRSD: 89 T: 9 QT: 364 QTc: 410 Interpretive Statements SINUS RHYTHM INFERIOR AND SEPTAL T-WAVE ABNORMALITY NO PRIOR Electronically Signed On 06-10-2017 15:04:25 EDT by Michelle Burgos
--- NOTE | 2017-06-10 15:17 | REP ---
OB ULTRASOUND: Real-time sonographic evaluation of the gravid uterus is performed utilizing transabdominal technique. There is a single living intrauterine gestation with an estimated gestational age of 14 weeks 6 days with EDC 12/04/2017. Today's measurements indicate appropriate growth. Biometry and Growth: BPD 27 mm = 14 weeks 5 days, 45th percentile HC 98 mm = 14 weeks 4 days, 36th percentile AC 89 mm = 15 weeks 1 day, 56th percentile FL 14 mm = 14 weeks 1 day, 25th percentile HC/AC ratio 1.10 is slightly below normal range of 1.11 to 1.30. Estimated weight 102 grams, 30th percentile. Cervical length: Closed and measures approximately 2.7 cm in length. heart rate: 152 beats per minute. Placenta: No subchorionic hemorrhage is seen. Placenta is anterior. There is no evidence of placenta previa. Right ovary is visualized and is unremarkable with no torsion with duplex Doppler evaluation. Left ovary could not be visualized. Signed by Tom Nicolas MD 06/10/2017 05:25 P
--- NOTE | 2017-06-10 17:58 | MHIPNPDOC ---
[facility] Progress Note Progress Note DATE OF SERVICE: 06/10/17 HISTORY: Patient was seen and evaluated. She reported that she has been feeling better and wanted to get discharge as soon as possible, but when discussed about discharge planning. She was tearful and reports that when she is not able to verbalize. She starts crying. Latency was complaining about abdominal pain, which was evaluated by internal medicine. Her sonogram was within normal limit, and all the labs were normal. Patient was recommended to follow up outpatient with PCP and also with [facility] doctor. She remains impulsive and has difficulty in controlling her emotions. She currently denies any suicidal or homicidal ideations, but seems to be minimizing her depression and anxiety symptoms. Sleeping and eating well as per patient. Denies any psychotic symptoms CURRENT MEDICATIONS: See below. MENTAL STATUS EXAMINATION: 21yo female sitting in the chair, looks appropriate for the stated age, fair hygiene and grooming, normal psychomotor activities, no abnormal movements, cooperative with fair eye contact, speech is soft, normal in rate, rhythm, low in amount and prosody, mood is 'sad', affect constricted & at times tearful and mood congruent, thought process is logical and goal directed, denies current suicidal and homicidal ideations, denies hallucinations, no delusions elicited, aaox3, fair immediate, short term and termite exterminator helper memory, limited insight, judgement and impulse control DIAGNOSES: 1. Major depression disorder with no psychosis MANAGEMENT PLAN: Continue current treatment. TIME SPENT: 15 minutes. Vital Signs Vital Signs Date Time Temp Pulse Resp B/P (MAP) Pulse Ox O2 Delivery O2 Flow Rate FiO2 06/10/17 06:57 97.5 85 16 121/63 (82) 06/09/17 18:00 Room Air 06/07/17 20:22 98 Laboratory Data 24H Labs Laboratory Tests 2 06/10/17 10:34: White Blood Count 8.3, Red Blood Count 4.02, Hemoglobin 12.2, Hematocrit 34.8L, Mean Corpuscular Volume 86.7, Mean Corpuscular Hemoglobin 30.3, Mean Corpuscular Hemoglobin Concent 35.0, Red Cell Distribution Width 12.1, Platelet Count 277, Neutrophils (%) (Auto) 74.5H, Lymphocytes (%) (Auto) 17.9L, Monocytes (%) (Auto) 4.0, Eosinophils (%) (Auto) 1.6, Basophils (%) (Auto) 0.2, Neutrophils # (Auto) 6.2, Lymphocytes # (Auto) 1.6, Monocytes # (Auto) 0.3, Eosinophils # (Auto) 0.1, Basophils # (Auto) 0.0, Large Unclassified Cells % 1.7 , Large Unclassified Cells # 0.1, Anion Gap 10, Blood Urea Nitrogen 7, Creatinine 0.53L, Sodium Level 140, Potassium Level 3.9, Chloride Level 106, Carbon Dioxide Level 24, Calcium Level 9.0, Aspartate Amino Transf (AST/SGOT) 11L, Alanine Aminotransferase (ALT/SGPT) 12, Alkaline Phosphatase 75, Total Bilirubin 0.2, Total Protein 7.5, Albumin 3.7, Albumin/Globulin Ratio 0.97L, Human Chorionic Gonadotropin, Quant [id number] 06/10/17 12:20: Urine Appearance CLOUDYH, Urine Color YELLOW, Urine pH 6.0, Urine Specific [place] 1.017, Urine Protein NEGATIVE, Urine Glucose (UA) 1+H, Urine Ketones NEGATIVE, Urine Urobilinogen 0.2, Urine Bilirubin NEGATIVE, Urine Leukocyte Esterase NEGATIVE, Urine Blood NEGATIVE, Urine Nitrite NEGATIVE, Urine WBC (Auto ) 0, Urine RBC (Auto) 1, Urine Hyaline Casts (Auto) 0, Urine Bacteria (Auto) NEGATIVE, Urine Squamous Epithelial Cells 4, Urine Amorphous Sediment LARGEH, Urine Mucus (Auto) SMALL, Urine Sperm (Auto) CBC/BMP Laboratory Tests 06/10/17 10:34 Red Blood Count 4.02, Mean Corpuscular Volume 86.7, Mean Corpuscular Hemoglobin 30.3, Mean Corpuscular Hemoglobin Concent 35.0, Red Cell Distribution Width 12.1 , Neutrophils (%) (Auto) 74.5 H, Lymphocytes (%) (Auto) 17.9 L, Monocytes (%) ( Auto) 4.0, Eosinophils (%) (Auto) 1.6, Basophils (%) (Auto) 0.2, Neutrophils # ( Auto) 6.2, Lymphocytes # (Auto) 1.6, Monocytes # (Auto) 0.3, Eosinophils # (Auto ) 0.1, Basophils # (Auto) 0.0, Calcium Level 9.0, Aspartate Amino Transf (AST/ SGOT) 11 L, Alanine Aminotransferase (ALT/SGPT) 12, Alkaline Phosphatase 75, Total Bilirubin 0.2, Total Protein 7.5, Albumin 3.7 Current Medications Current Medications Fluoxetine HCl (PROzac) 10 mg DAILY PO Last administered on 06/10/17 07:59; Start 06/09/17 at 09:00; Stop 07/09/17 at 08:59 Home Med (Med Rec Complete!) ASDIRECTED XX ; Start 06/07/17 at 19:30; Stop at 19:30; Status DC Prenat Multivit/ [place]/Plowing/Iron/Folic Ac ( Vitamins) 1 tab DAILY PO Last administered on 06/10/17 07:59; Start 06/08/17 at 09:00; Stop 07/08/17 at 08:59 Allergies Coded Allergies: No Known Allergies (Unverified , 07/25/16) YUSUF LOPEZ MD Jun 10, 2017 17:58
[2017-06-10 18:00] VITALS: BP 121/78
[2017-06-11 06:20] VITALS: BP 136/64
[2017-06-11 06:21] VITALS: BP 136/64
[2017-06-11] MEDS: PRENATAL VITAMINS CHEWABLE TABLET PO SCH (09:04)
[2017-06-11] MEDS: FLUoxetine 10 MG CAP PO SCH (09:04)
--- NOTE | 2017-06-11 16:38 | MHIPNPDOC ---
[facility] Progress Note Progress Note DATE OF SERVICE: 06/11/17 HISTORY: She was seen and evaluated for her progress in the inpatient psychiatry unit. On evaluation, she reported that she is feeling better after seeing the fetus and a sonogram. And denies any abdominal pain anymore. She continued to take her medications and able to tolerate it better. She denies any suicidal or homicidal ideation. Sleeping and eating well. She reported that is getting deployed, sometimes in the next month, but does not have specific dates of leaving and wants to spend some time with him before he goes before the deployment. Staff reported that patient's was concerned about his safety because patient was threatening to kill him before coming to the hospital. Patient currently denies any thoughts ever harm her . Denies paranoia or hallucinations. Planning to see medical doctor again for cough, which increases during the nighttime when she is lying down and it's dry all the time. Denies any fever, chest pain, palpitation or sore throat. VITAL SIGNS: See below. CURRENT MEDICATIONS: See below. MENTAL STATUS EXAMINATION: 21yo female sitting in the chair, looks appropriate for the stated age, fair hygiene and grooming, normal psychomotor activities, no abnormal movements, cooperative with fair eye contact, speech is soft, normal in rate, rhythm, low in amount and prosody, mood is 'sad', affect constricted & at times tearful and mood congruent, thought process is logical and goal directed, denies current suicidal and homicidal ideations, denies hallucinations, no delusions elicited, aaox3, fair immediate, short term and state attorney memory, limited insight, judgement and impulse control DIAGNOSES: 1. Major depression disorder with no psychosis MANAGEMENT PLAN: Continue current treatment. TIME SPENT: 15 minutes. Vital Signs Vital Signs Date Time Temp Pulse Resp B/P (MAP) Pulse Ox O2 Delivery O2 Flow Rate FiO2 06/11/17 06:21 98.9 77 16 136/64 (88) 06/11/17 06:20 Room Air 06/07/17 20:22 98 Current Medications Current Medications Fluoxetine HCl (PROzac) 10 mg DAILY PO Last administered on 06/11/17t 09:04; Start 06/09/17 at 09:00; Stop 07/09/17 at 08:59 Home Med (Med Rec Complete!) ASDIRECTED XX ; Start 06/07/17 at 19:30; Stop at 19:30; Status DC Prenat Multivit/ [place]/Iron/Folic Ac ( Vitamins) 1 tab DAILY PO Last administered on 06/11/17t 09:04; Start 06/08/17 at 09:00; Stop 07/08/17 at 08:59 Allergies Coded Allergies: No Known Allergies (Unverified , 07/25/16) YUSUF LOPEZ MD Jun 11, 2017 16:38
[2017-06-11 18:00] VITALS: BP 116/56
[2017-06-12 06:54] VITALS: BP 106/56
[2017-06-12] MEDS: FLUoxetine 20 MG CAP PO SCH (08:21)
[2017-06-12] MEDS: PRENATAL VITAMINS CHEWABLE TABLET PO SCH (08:22)
--- NOTE | 2017-06-12 08:54 | IPNPDOC ---
Date Seen The patient was seen on 06/12/17. Progress Note HPI:21year old F inpatient at [facility] related to depression. Requested to re evaluate the pt today related to cough. The patient states she has noticed postnasal drip. No sore throat. No fevers or chills. No ear complaints. She is known to have hayfever and typically has allergy symptoms late May and early June. Pt is currently 14 weeks . Follows with [place] [facility]ERIALS TECHNICIAN. Next appt scheduled 06/26/17. Denies any further abdominal discomfort. Denies urinary complaints, dysuria, frequency, hematuria. No vaginal bleeding/ discharge. Denies diarrhea, nausea, vomiting. Reports occasional constipation. Denies any fevers, chills, weakness, fatigue, Headache, Chest Pain, Shortness of breath, cough, palpitations, or changes in bowel or bladder habits. PMHx: miscarriage 08/03 depression PSHX: D&C 08/03 PE: GEN: 21yoF, appears stated age. Well-nourished, well developed. Teary, upset. Alert and oriented x 3. HEENT: Normocephalic, atraumatic. Sclera are nonicteric. Conjunctiva without injection. Nose midline. No facial asymmetry. Moist mucous membranes, clear PND noted. EACs appear nml, TMs quan with no erythema/effusion. B/L Neck supple , trachea midline. CHEST: Regular rate and rhythm, +S1, +S2 LUNGS: Clear to auscultation bilaterally. No wheezes, rales, or rhonchi. Breathing appears symmetric and easy. Patient is speaking in full sentences. No accessory muscle use. ABD: Round, soft, Mild TTP LLQ, RLQ. +Bowel sounds throughout. No rebound or guarding. No costovertebral angle tenderness. EXT: No lower extremity edema appreciated. SKIN: [place], dry, warm. No rashes. NEURO: Alert and oriented x 3. No focal deficits appreciated. OB U/S 06/10/17 Real-time sonographic evaluation of the gravid uterus is performed utilizing transabdominal technique. There is a single living intrauterine gestation with an estimated gestational age of 14 weeks 6 days with EDC 12/04/2017. Today's measurements indicate appropriate growth. Biometry and Growth: BPD 27 mm = 14 weeks 5 days, 45th percentile HC 98 mm = 14 weeks 4 days, 36th percentile AC 89 mm = 15 weeks 1 day, 56th percentile FL 14 mm = 14 weeks 1 day, 25th percentile HC/AC ratio 1.10 is slightly below normal range of 1.11 to 1.30. Estimated weight 102 grams, 30th percentile. Cervical length: Closed and measures approximately 2.7 cm in length. heart rate: 152 beats per minute. Placenta: No subchorionic hemorrhage is seen. Placenta is anterior. There is no evidence of placenta previa. Right ovary is visualized and is unremarkable with no torsion with duplex Doppler evaluation. Left ovary could not be visualized. A&P: 21year old F inpatient at [facility] related to depression 1. Psych. Plan per Psychiatry. Obtain baseline EKG to assure the safety of psychiatric medications as they can prolong the QT interval. 2. . OB U/S as above. Outpt F/U with OB provider as scheduled. 3. Abdominal pain. CBCd/CMP pending. HCG pending. Request OB U/S. Check UA/UC. 4. Follow up with PCP on discharge. 5. Follow up with [place] MATERIALS TECHNICIAN at discharge. 6. Allergic rhinitis/cough. Add Flonase 2 sprays each nostril daily. Cepacol as needed for cough. 7. Staff member Carina present throughout exam. VS, I&O, 24H, Fishbone Vital Signs/I&O Vital Signs Date Time Temp Pulse Resp B/P (MAP) Pulse Ox O2 Delivery O2 Flow Rate FiO2 06/12/17 06:54 98.7 113 20 106/56 (73) Room Air 06/07/17 20:22 98 Laboratory Data Microbiology Microbiology 06/10/17 Urine Culture - Final, Complete Tatyana Quick Jun 12, 2017 08:54
[2017-06-12] MEDS ORDERED: CEPACOL LOZENGE PO PRN (09:00)
[2017-06-12] MEDS: FLUTICASONE PROP 0.05% NASAL SPRAY 16 GM (FLONASE) SCH (09:43)
--- NOTE | 2017-06-12 15:43 | MHIPNPDOC ---
[facility] Progress Note Progress Note DATE OF SERVICE: 06/12/17 HISTORY: Patient was seen and evaluated for her progress in inpatient psychiatry unit. On evaluation, patient reported that she was very upset yesterday because her was very demanding and the visiting hours yesterday. She reported that he was expecting her to change and he was also comparing her with others. His expectation was to change Patient in terms of how she behaves and how she acts, and talks. Patient reported that she was feeling insulted and got into argument with him and ask him to leave the visiting time. Patient was able to identify that she talks with emotions attached to it and would like to change it. But continued to be upset with the and accusing him of creating all the problems that she has. Discussion about communication strategies in which she can be assertive and also advocate for self. She denies any suicidal or homicidal ideations, but remains stressed. Denies psychotic symptoms. Patient was seen for cough for Possible postnasal drip by medical side. VITAL SIGNS: See below. CURRENT MEDICATIONS: See below. MENTAL STATUS EXAMINATION: 21yo female sitting in the chair, looks appropriate for the stated age, fair hygiene and grooming, normal psychomotor activities, no abnormal movements, cooperative with fair eye contact, speech is soft, normal in rate, rhythm, low in amount and prosody, mood is 'sad', affect constricted & at times tearful and mood congruent, thought process is logical and goal directed, denies current suicidal and homicidal ideations, denies hallucinations, no delusions elicited, aaox3, fair immediate, short term and assisted memory, limited insight, judgement and impulse control DIAGNOSES: 1. Major depression disorder with no psychosis MANAGEMENT PLAN: Continue current treatment. TIME SPENT: 15 minutes. Vital Signs Vital Signs Date Time Temp Pulse Resp B/P (MAP) Pulse Ox O2 Delivery O2 Flow Rate FiO2 06/12/17 06:54 98.7 113 20 106/56 (73) Room Air 06/07/17 20:22 98 Current Medications Current Medications Cetylpyridinium Chloride (Cepacol) 1 samm Q4HP PRN PO COUGH; Start 06/12/17 at 09:00; Stop 07/12/17 at 08:59 Fluoxetine HCl (PROzac) 10 mg DAILY PO Last administered on 06/11/17t 09:04; Start 06/09/17 at 09:00; Stop 06/11/17 at 16:40; Status DC Fluoxetine HCl (PROzac) 20 mg DAILY PO Last administered on 06/12/17 08:21; Start 06/12/17 at 09:00; Stop 07/12/17 at 08:59 Fluticasone Propionate (Flonase 0.05% Nasal [place]) 2 spray DAILY NA Last administered on 06/12/17 09:43; Start 06/12/17 at 09:00; Stop 07/12/17 at 08:59 Home Med (Med Rec Complete!) ASDIRECTED XX ; Start 06/07/17 at 19:30; Stop at 19:30; Status DC Prenat Multivit/ [place]/Iron/Folic Ac ( Vitamins) 1 tab DAILY PO Last administered on 06/12/17 08:22; Start 06/08/17 at 09:00; Stop 07/08/17 at 08:59 Allergies Coded Allergies: No Known Allergies (Unverified , 07/25/16) YUSUF LOPEZ MD Jun 12, 2017 15:43
[2017-06-12 18:00] VITALS: BP 121/70
[2017-06-13 06:00] VITALS: BP 118/63
[2017-06-13] MEDS: PRENATAL VITAMINS CHEWABLE TABLET PO SCH (08:06)
[2017-06-13] MEDS: FLUoxetine 20 MG CAP PO SCH (08:06)
[2017-06-13] MEDS: FLUTICASONE PROP 0.05% NASAL SPRAY 16 GM (FLONASE) SCH (08:06)
[2017-06-13 09:15] VITALS: BP 113/54
[2017-06-13 18:00] VITALS: BP 107/57
[2017-06-14 06:47] VITALS: BP 109/60
[2017-06-14] MEDS: FLUTICASONE PROP 0.05% NASAL SPRAY 16 GM (FLONASE) SCH (08:26)
[2017-06-14] MEDS: PRENATAL VITAMINS CHEWABLE TABLET PO SCH (08:26)
[2017-06-14] MEDS: FLUoxetine 20 MG CAP PO SCH (08:26)
[2017-06-14 18:00] VITALS: BP 131/60
[2017-06-15 06:39] VITALS: BP 116/59
[2017-06-15] MEDS: FLUTICASONE PROP 0.05% NASAL SPRAY 16 GM (FLONASE) SCH (08:24)
[2017-06-15] MEDS: PRENATAL VITAMINS CHEWABLE TABLET PO SCH (08:24)
[2017-06-15] MEDS: FLUoxetine 20 MG CAP PO SCH (08:24)
--- NOTE | 2017-06-15 15:14 | MHIPNPDOC ---
[facility] Progress Note Progress Note DATE OF SERVICE: 06/15/17 HISTORY: Patient was seen and evaluated for her progress in inpatient psychiatry unit. On evaluation, patient reported that she was visited by her and was able to talk with other family members or the phone. She reported that she is able to communicate with her better about her needs and how to handle future arguments. She reported that she would like to how some time break before talking about the arguments so that she can calm down , and also would like to be assertive to about her side. She reported that her has been more supportive about better communication and also willing to go for marital counseling. Patient continues to be compliant with the medications and denies any side effects. She also denies any sleep or appetite problems. Thinks that the dry cough is more under control with the treatment. Denies any psychotic symptoms including hallucinations or paranoid ideations. VITAL SIGNS: See below. CURRENT MEDICATIONS: See below. MENTAL STATUS EXAMINATION: 21yo female sitting in the chair, looks appropriate for the stated age, fair hygiene and grooming, normal psychomotor activities, no abnormal movements, cooperative with fair eye contact, speech is normal in rate, rhythm, amount and prosody, mood is 'fine', affect constricted and mood congruent, thought process is logical and goal directed, denies current suicidal and homicidal ideations, denies hallucinations, no delusions elicited, aaox3, fair immediate, short term and usp memory, fair insight, judgement and impulse control DIAGNOSES: 1. Major depression disorder with no psychosis MANAGEMENT PLAN: Continue current treatment. Discharge planning in progress TIME SPENT: 15 minutes. Vital Signs Vital Signs Date Time Temp Pulse Resp B/P (MAP) Pulse Ox O2 Delivery O2 Flow Rate FiO2 06/15/17 06:39 98.9 51 16 116/59 (78) Room Air 06/13/17 09:15 96 Current Medications Current Medications Cetylpyridinium Chloride (Cepacol) 1 samm Q4HP PRN PO COUGH; Start 06/12/17 at 09:00; Stop 07/12/17 at 08:59 Fluoxetine HCl (PROzac) 10 mg DAILY PO Last administered on 06/11/17 09:04; Start 06/09/17 at 09:00; Stop 06/11/17 at 16:40; Status DC Fluoxetine HCl (PROzac) 20 mg DAILY PO Last administered on 06/15/17 08:24; Start 06/12/17 at 09:00; Stop 07/12/17 at 08:59 Fluticasone Propionate (Flonase 0.05% Nasal [place]) 2 spray DAILY NA Last administered on 06/15/17 08:24; Start 06/12/17 at 09:00; Stop 07/12/17 at 08:59 Home Med (Med Rec Complete!) ASDIRECTED XX ; Start 06/07/17 at 19:30; Stop at 19:30; Status DC Prenat Multivit/ Clinical Informatics Manager/Iron/Folic Ac ( Vitamins) 1 tab DAILY PO Last administered on 06/15/17 08:24; Start 06/08/17 at 09:00; Stop 07/08/17 at 08:59 Allergies Coded Allergies: No Known Allergies (Unverified , 07/25/16) YUSUF LOPEZ MD Jun 15, 2017 15:14
[2017-06-15 18:00] VITALS: BP 112/68
[2017-06-16 06:23] VITALS: BP 110/64
[2017-06-16] MEDS: FLUoxetine 20 MG CAP PO SCH (08:10)
[2017-06-16] MEDS: PRENATAL VITAMINS CHEWABLE TABLET PO SCH (08:10)
[2017-06-16] MEDS: FLUTICASONE PROP 0.05% NASAL SPRAY 16 GM (FLONASE) SCH (08:10)
[2017-06-16] MEDS ORDERED: FLUO20CA19 PO (09:41)
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
== END 2017-06-16 11:05 | disposition home or self-care (01) | DRG 781 ==
LOC: M ED 17:02 → M ED INP 20:13 → M PSY 21:18
PROVIDERS: ADMIT Psychiatry & Neurology Psychiatry; ATTEND Psychiatry & Neurology Psychiatry
DX: O99.342 Other mental disorders complicating pregnancy, second trimester (principal); O99.512 Diseases of the respiratory system complicating pregnancy, second trimester; J30.2 Other seasonal allergic rhinitis; F43.20 Adjustment disorder, unspecified; F32.9 Major depressive disorder, single episode, unspecified; Z3A.14 14 weeks gestation of pregnancy; R10.30 Lower abdominal pain, unspecified; O26.892 Other specified pregnancy related conditions, second trimester

== ENCOUNTER 2017-09-22 18:14 | Outpatient (CLI) | payer OTHER ==
[~2017-09-22] VITALS: Ht 157.5 cm; Wt 70.1 kg
[~2017-09-22 18:14] MED LIST changes: +FLUO20CA19 PO; +PRENCHW PO
[2017-09-22 18:32] VITALS: BP 112/70
[2017-09-22] MEDS ORDERED: PROZ10CA7 PO (18:48)
--- NOTE | 2017-09-22 19:02 | IPNPDOC ---
Text Note Date of Service The patient was seen on 09/22/17. NOTE [id number] @ 1857 22 yo presents to L&D triage ambulatory @ 29+1 with reports of walking her dog. Another dog attacked her dog and she had a sharp pain when she grabbed her dog. Denies bites or scratches from either dog. Has had no additional sharp pains. Denies CTXs, DFM, LOF and VB. S: Resting in semi-fowlers. Denies pain or discomfort O: VS- WNL, afebrile FHR- 140, moderate variability, + accels(15 x 15), no decels CTXs- none, resting tone palpated as soft A: 22 yo @ 29+1 with a reactive NST with no diagnosis P: Discharge to home with strict return precautions including s/s of PTL-LOF, CTXs, and VB. Also reviewed FKCs with the patient. VS,Fishbone, I+O VS, Fishbone, I+O Vital Signs Date Time Temp Pulse Resp B/P (MAP) Pulse Ox O2 Delivery O2 Flow Rate FiO2 09/22/17 18:32 98.1 85 20 112/70 (84) DAPHNIE SANCHEZ CNM Sep 22, 2017 19:02
== END 2017-09-22 19:05 | disposition home or self-care (01) ==
LOC: M LDO 18:14
PROVIDERS: ATTEND Midwife
DX: O26.893 Other specified pregnancy related conditions, third trimester (principal); Z3A.29 29 weeks gestation of pregnancy; R10.9 Unspecified abdominal pain

== ENCOUNTER 2017-10-10 20:04 | Outpatient (CLI) | payer OTHER ==
[~2017-10-10] VITALS: Ht 157.5 cm; Wt 71.2 kg
[~2017-10-10 20:04] MED LIST changes: +PROZ10CA7 PO
[2017-10-10 20:21] VITALS: BP 117/62
--- NOTE | 2017-10-12 08:06 | HPE ---
DATE OF ADMISSION: 10/10/2017 This lady is a 22-year-old 2, para 0, abortio 1, last menstrual period (LMP) 02/27/2017, estimated date of confinement (EDC) 12/08/2017, at 31 and 3 weeks of gestation, comes in with a history of vaginal stinging for 3 days of duration. No loss of fluid. No vaginal discharge. No irritation. Risk factors is she had suicidal ideations, was hospitalized, presently on Prozac and she is toxo exposure with IgG and IgM positive. PAST HISTORY: At 8 weeks had a spontaneous , dilation and curettage in 2016. Labs show toxo IgM, IgG positive, B+, HIV negative, hepatitis negative, RPR negative, rubella immune. Varicella immune. Gonorrhea and chlamydia are negative. 1-hour glucose 99 and a quad screen was negative. Ultrasounds have been following along regarding spinal issues in relation to her toxo exposure. On examination, no acute distress. Symphysis fundus height is 32. Category 1 strip. Sterile speculum examination: Cervix is closed, posterior, not dilated. No vaginal loss. No blood. A pH was performed, which was negative. The wet mount and TISHA preps negative. Blood pressure is 117/62, pulse 76, respirations 18, temperature is 98.2. 1.020, pH 6, +1 leukocyte esterase and negative for the rest. The patient was given precautions and discharged undelivered. Has a followup appointment on 10/20/2017. The rest the examination is unremarkable. Category one strip. Normocephalic, atraumatic. Neck full range of motions. Pupils equal and reactive to light. Distal pulses symmetric. No evidence of deep venous thrombosis (DVT), pulmonary embolism (PE) or superficial phlebitis. Lungs are clear bilaterally bases. No wheezes or rhonchi. No costovertebral angle (CVA) tenderness. Four quadrant bowel sounds are noted. She has no rashes, lesions or pruritus. No arthralgia, myalgia. No complaints of cough, wheeze, shortness of breath or dyspnea on exertion. No chest pain. Not bleeding. Neuro complete. No incontinency, urgency or frequency. No nausea, vomiting, diarrhea or constipation. No diabetic issues. No family history, no medical and no surgical interventionsl. She does not smoke, drink, abuse drugs. She is . There is no domestic violence. She does have a psychosocial problem. Her is deployed until December of 2017. The patient was discharged.
== END 2017-10-10 22:15 | disposition home or self-care (01) ==
LOC: M LDO 20:04
PROVIDERS: ATTEND Obstetrics & Gynecology
DX: O26.893 Other specified pregnancy related conditions, third trimester (principal); R10.2 Pelvic and perineal pain; Z3A.31 31 weeks gestation of pregnancy; O99.343 Other mental disorders complicating pregnancy, third trimester

== ENCOUNTER 2017-11-08 20:02 | Outpatient (CLI) | payer OTHER | END 2017-11-08 21:30 | disposition home or self-care (01) | LOC: M LDO 20:02 | DX: O47.03 False labor before 37 completed weeks of gestation, third trimester (principal); Z3A.35 35 weeks gestation of pregnancy | CPT/HCPCS: 59025 ==

== ENCOUNTER 2017-12-04 03:35 | Outpatient (CLI) | payer OTHER | END 2017-12-04 04:20 | disposition home or self-care (01) | LOC: M LDO 03:35 | DX: O47.1 False labor at or after 37 completed weeks of gestation (principal); Z3A.39 39 weeks gestation of pregnancy | CPT/HCPCS: 59025 ==

== ENCOUNTER 2017-12-04 12:10 | Inpatient (IN) | payer OTHER ==
[2017-12-04] MEDS: LACTATED RINGER'S 1000 ML IV (13:11)
[2017-12-04] MEDS: LR 1,000 ML IV ×3 (13:11→21:25)
[2017-12-04 13:18] LABS: HEMATOCRIT 36.7 % (36.0-47.0); HEMOGLOBIN 12.5 g/dl (12.0-16.0); MEAN CORPUSCULAR HGB CONC 34.1 g/dl (32.0-36.5); MEAN CORPUSCULAR VOLUME 85.2 fl (80.0-96.0); PLATELET COUNT, AUTOMATED 347 10^3/uL (150-450); RED BLOOD COUNT 4.31 10^6/uL (4.00-5.40); RED CELL DISTRIBUTION WIDTH 12.8 % (11.5-14.5); WHITE BLOOD COUNT 11.5 10^3/uL (4.0-10.0)
[2017-12-04] MEDS ORDERED: FENTANYL 2MCG/ML ROPIVACAINE 0.2% IN 0.9% NACL 200ML IVBAG As Ordered (14:11)
[2017-12-04] MEDS: FENTANYL/ROPIVACAINE/NACL BAG 200 ML EPIDURAL (15:00)
[2017-12-04] MEDS ORDERED: diphenhydrAMINE INJ 50MG/ML VIAL (J1200) IV (15:00)
[2017-12-04] MEDS ORDERED: REFRIGERATOR IV KEYS XX (15:00)
[2017-12-04] MEDS ORDERED: NALOXONE INJ 0.4 MG/1 ML VIAL (J2310) IV (15:00)
[2017-12-04] MEDS ORDERED: LACTATED RINGER'S 1000 ML IV (15:00)
[2017-12-04] MEDS ORDERED: EPIDURAL COMMENT XX (15:00)
[2017-12-04] MEDS ORDERED: EPIDURAL/PCA KEYS XX (15:00)
[2017-12-04] MEDS ORDERED: ONDANSETRON 4MG/2ML VIAL (J2405) IV (15:00)
[2017-12-04] MEDS ORDERED: ePHEDrine SULFATE 25 MG/5 ML(5MG/ML) SYRINGE IV (15:00)
[2017-12-04] MEDS ORDERED: OXYTOCIN 30 UNITS IN 0.9% NaCl 500ML IV BAG (J2590) As Ordered (17:21)
[2017-12-04] MEDS: OXYTOCIN DRIP 30 UNITS in APPROPRIATE DILUENT 1 EA IV (18:05)
[2017-12-04] MEDS ORDERED: MEASLES,MUMPS,RUBELLA VACCINE INJ (MMR-II) (90707) SC (18:15)
[2017-12-04] MEDS: LIDOCAINE 1% MDV INJ 50 ML VIAL INFIL (18:15)
[2017-12-04] MEDS ORDERED: RHOGAM 300 MCG (1500 IU) INJ (J2790) IM (18:15)
[2017-12-04] MEDS: ACETAMINOPHEN 500 MG TAB PO (20:23)
[2017-12-04] MEDS: IBUPROFEN 800 MG TAB PO (20:23)
[2017-12-04] MEDS: DOCUSATE SODIUM 100 MG CAP PO (20:23)
[2017-12-04] MEDS: DIBUCAINE 1% OINTMENT 30GM TOP (20:24)
[2017-12-05] MEDS: PRENATAL VITAMINS CHEWABLE TABLET PO (08:13)
[2017-12-05] MEDS: IBUPROFEN 800 MG TAB PO (19:57)
[2017-12-05] MEDS: FLUoxetine 10 MG CAP PO (21:00)
[2017-12-06] MEDS: PRENATAL VITAMINS CHEWABLE TABLET PO (08:57)
== END 2017-12-06 15:00 | disposition home or self-care (01) | DRG 775 ==
LOC: M LDO 12:10 → M OBS 19:00 → M LDI 12:48
PROVIDERS: Obstetrics & Gynecology
PROC: 10E0XZZ Delivery of Products of Conception, External Approach (ICD-10-PCS; principal; 2017-12-04)
PROC: 0KQM0ZZ Repair Perineum Muscle, Open Approach (ICD-10-PCS; 2017-12-04)
PROC: 10907ZC Drainage of Amniotic Fluid, Therapeutic from Products of Conception, Via Natural or Artificial Opening (ICD-10-PCS; 2017-12-04)
PROC: 0HQ9XZZ Repair Perineum Skin, External Approach (ICD-10-PCS; 2017-12-04)
DX: O99.344 Other mental disorders complicating childbirth (principal); F32.9 Major depressive disorder, single episode, unspecified; Z3A.39 39 weeks gestation of pregnancy; O70.1 Second degree perineal laceration during delivery; O70.0 First degree perineal laceration during delivery; Z37.0 Single live birth

== ENCOUNTER → 2021-11-06 | Outpatient (REF) ==
[~2021-11-06] MED LIST changes: +COLA100C5 PO; +DIBU28OI2 TOP; -FLUO20CA19 PO; +FLUO20CA22 PO; +IBUP-1114 PO; +MAPA500T2 PO
== END ==
LOC: M LABSMTC 13:09
PROVIDERS: ATTEND Pediatrics
DX: Z11.52 Encounter for screening for COVID-19 (principal)

== ENCOUNTER 2021-12-23 07:33 | Inpatient (IN) | payer OTHER ==
[~2021-12-23] VITALS: Ht 157.5 cm; Wt 79.7 kg
[2021-12-23] VITALS (25 sets, daily range): BP systolic 124–160; BP diastolic 71–105
[2021-12-23] MEDS ORDERED: HOME MED LIST COMPLETE! XX SCH (08:30)
[2021-12-23] MEDS ORDERED: LIDOCAINE 1% MDV 20ML VIAL INFIL PRN (08:55)
[2021-12-23] MEDS ORDERED: TRANEXAMIC ACID INJection 1,000 MG in NS 100 ML IV PRN (08:55)
[2021-12-23] MEDS: LR 1,000 ML IV SCH ×2 (08:55→16:55)
[2021-12-23] MEDS ORDERED: OXYTOCIN DRIP 30 UNITS in IV 1 EA IV PRN ×4 (08:55)
[2021-12-23] MEDS ORDERED: CARBOPROST TROMETHAMINE 250 MCG/ML AMP IM PRN (08:55)
[2021-12-23] MEDS ORDERED: METHYLERGONOVINE MALEATE 0.2 MG/ML VIAL (J2210) IM PRN (08:55)
[2021-12-23 10:05] LABS: BASO % 0.2 % (0.0-1.0); EOS # 0.1 10^3/uL (0.0-0.5); EOS % 1.3 % (0.0-3.0); HEMATOCRIT 34.8 % (36.0-47.0); HEMOGLOBIN 11.8 g/dl (12.0-15.5); LYMPH # 1.8 10^3/uL (1.5-5.0); LYMPH % 21.7 % (24.0-44.0); MEAN CORPUSCULAR HEMOGLOBIN 29.2 pg (27.0-33.0); MEAN CORPUSCULAR HGB CONC 33.9 g/dl (32.0-36.5); MEAN CORPUSCULAR VOLUME 86.1 fl (80.0-96.0); MONO # 0.6 10^3/uL (0.0-0.8); NEUTROPHILS # 5.7 10^3/uL (1.5-8.5); NEUTROPHILS % 69.1 % (36.0-66.0); PLATELET COUNT, AUTOMATED 228 10^3/uL (150-450); RED BLOOD COUNT 4.04 10^6/uL (4.00-5.40); WHITE BLOOD COUNT 8.3 10^3/uL (4.0-10.0)
[2021-12-23] MEDS ORDERED: OXYTOCIN DRIP 30 UNITS in IV 1 EA IV SCH ×2 (15:10→19:30)
[2021-12-23] MEDS ORDERED: FENTANYL 2MCG/ML ROPIVACAINE 0.2% IN 0.9% NACL 100ML IVBAG As Ordered ONE (16:55)
[2021-12-23] MEDS ORDERED: LACTATED RINGER'S 1000 ML IV PRN (18:20)
[2021-12-23] MEDS ORDERED: NALOXONE INJ 0.4MG/1ML VIAL (J2310 PER 1MG) IV PRN (18:20)
[2021-12-23] MEDS ORDERED: ePHEDrine SULFATE 25 MG/5 ML(5MG/ML) SYRINGE IV PRN (18:20)
[2021-12-23] MEDS ORDERED: diphenhydrAMINE 50MG/ML VIAL (J1200) IV PRN (18:20)
[2021-12-23] MEDS ORDERED: EPIDURAL/PCA KEYS XX PRN (18:20)
[2021-12-23] MEDS ORDERED: ONDANSETRON 4MG/2ML VIAL IV PRN ×2 (18:20→19:30)
[2021-12-23] MEDS ORDERED: FENTANYL/ROPIVACAINE/NACL BAG 100 ML EPIDURAL SCH (18:20)
[2021-12-23] MEDS ORDERED: EPIDURAL COMMENT XX SCH (18:20)
[2021-12-23] MEDS ORDERED: REFRIGERATOR IV KEYS XX PRN (18:20)
[2021-12-23] MEDS ORDERED: IBUPROFEN 600MG TAB PO PRN (19:30)
[2021-12-23] MEDS ORDERED: MEASLES,MUMPS,RUBELLA VACCINE INJ (MMR-II) (90707) SC SCH (19:30)
[2021-12-23] MEDS ORDERED: IBUPROFEN 800 MG TAB PO PRN (19:30)
[2021-12-23] MEDS ORDERED: LR 1,000 ML IV SCH (19:30)
[2021-12-23] MEDS ORDERED: ACETAMINOPHEN 500 MG TAB PO PRN (19:30)
[2021-12-23] MEDS ORDERED: DOCUSATE SODIUM 100MG CAPSULE PO PRN (19:30)
[2021-12-23] MEDS ORDERED: ANUSOL HC CREAM 30GM TOP PRN (19:30)
[2021-12-23] MEDS ORDERED: DIBUCAINE 1% OINTMENT 30GM TOP PRN (19:30)
[2021-12-23] MEDS ORDERED: ACETAMINOPHEN TAB 650MG DOSE (2X325MG) PO PRN (19:30)
[2021-12-23] MEDS ORDERED: METHYLERGONOVINE MALEATE 0.2 MG TAB PO PRN (19:30)
[2021-12-23] MEDS ORDERED: RHOGAM 300 MCG (1500 IU) INJ (J2790) IM SCH (19:30)
[2021-12-24 06:00] VITALS: BP 121/62
[2021-12-24] MEDS: PRENATAL VITAMINS CHEWABLE TABLET PO SCH (08:42)
[2021-12-24 18:04] VITALS: BP 126/84
[2021-12-25 06:00] VITALS: BP 133/77
[2021-12-25] MEDS ORDERED: ACET-683 PO (07:13)
[2021-12-25] MEDS ORDERED: IBUP80TA PO (07:13)
[2021-12-25] MEDS: PRENATAL VITAMINS CHEWABLE TABLET PO SCH (08:17)
== END 2021-12-25 12:14 | disposition home or self-care (01) | DRG 807 ==
LOC: M LDO 07:33 → M LDI 08:55 → M OBS 21:20
PROVIDERS: ADMIT Obstetrics & Gynecology; ATTEND Obstetrics & Gynecology
PROC: 10E0XZZ Delivery of Products of Conception, External Approach (ICD-10-PCS; principal; 2021-12-23)
DX: O99.02 Anemia complicating childbirth (principal); Z37.0 Single live birth; D64.9 Anemia, unspecified; Z3A.40 40 weeks gestation of pregnancy; O48.0 Post-term pregnancy

== ENCOUNTER 2023-02-09 14:57 | Emergency (ER) | payer OTHER ==
[~2023-02-09] VITALS: Ht 157.5 cm; Wt 67.5 kg
[~2023-02-09 14:57] MED LIST changes: +ACET-683 PO; +IBUP80TA PO
[2023-02-09] MEDS ORDERED: SERT50TA29 (15:10)
[2023-02-09] MEDS ORDERED: IBUPROFEN 600MG TAB PO ONE (18:50)
[2023-02-09 18:56] VITALS: BP 121/74
== END 2023-02-09 19:00 | disposition home or self-care (01) ==
LOC: M ED 14:57
DX: S69.91XA Unspecified injury of right wrist, hand and finger(s), initial encounter (principal); W23.0XXA Caught, crushed, jammed, or pinched between moving objects, initial encounter; Y92.242 Post office as the place of occurrence of the external cause; Y93.89 Activity, other specified; Y99.8 Other external cause status; F41.9 Anxiety disorder, unspecified; F32.A Depression, unspecified; Z79.899 Other long term (current) drug therapy

== ENCOUNTER 2023-07-06 16:44 | Emergency (ER) | payer OTHER ==
[~2023-07-06] VITALS: Ht 157.5 cm; Wt 70.1 kg
[~2023-07-06 16:44] MED LIST changes: +SERT50TA29
[2023-07-06 16:47] VITALS: BP 140/77; TEMP 97.9; O2SAT 98
[2023-07-06] MEDS ORDERED: IBUPROFEN 400MG TAB PO ONE (21:30)
[2023-07-06] MEDS ORDERED: ACETAMINOPHEN TAB 650MG DOSE (2X325MG) PO ONE (21:30)
== END 2023-07-06 21:49 | disposition home or self-care (01) ==
LOC: M ED 16:44
DX: S30.1XXA Contusion of abdominal wall, initial encounter (principal); Y04.0XXA Assault by unarmed brawl or fight, initial encounter; F32.A Depression, unspecified; Z79.899 Other long term (current) drug therapy

== ENCOUNTER 2024-01-09 15:47 | Emergency (ER) | payer OTHER ==
[~2024-01-09] VITALS: Ht 157.5 cm; Wt 75.1 kg
[~2024-01-09 15:47] MED LIST changes: -SERT50TA29; +SERT50TA29 PO
[2024-01-09 17:01] LABS: BASO % 0.4 % (0.0-1.0); EOS # 0.1 10^3/uL (0.0-0.5); EOS % 1.2 % (0.0-3.0); HEMATOCRIT 37.2 % (36.0-47.0); HEMOGLOBIN 12.7 g/dl (12.0-15.5); LYMPH % 19.9 % (24.0-44.0); MEAN CORPUSCULAR HEMOGLOBIN 29.9 pg (27.0-33.0); MEAN CORPUSCULAR HGB CONC 34.1 g/dl (32.0-36.5); MEAN CORPUSCULAR VOLUME 87.5 fl (80.0-96.0); MONO # 0.7 10^3/uL (0.0-0.8); MONO % 6.4 % (2.0-8.0); NEUTROPHILS # 7.3 10^3/uL (1.5-8.5); NEUTROPHILS % 71.8 % (36.0-66.0); PLATELET COUNT, AUTOMATED 305 10^3/uL (150-450); RED BLOOD COUNT 4.25 10^6/uL (4.00-5.40); WHITE BLOOD COUNT 10.2 10^3/uL (4.0-10.0)
[2024-01-09 17:25] LABS: BLOOD UREA NITROGEN 11 MG/DL (9-23); CALCIUM LEVEL 8.8 MG/DL (8.5-10.1); CARBON DIOXIDE LEVEL 26 MMOL/L (20-31); CHLORIDE LEVEL 108 MMOL/L (98-107); CREATININE FOR GFR 0.47 MG/DL (0.55-1.30); GLOMERULAR FILTRATION RATE > 60.0 (>60); GLUCOSE, FASTING 108 MG/DL (60-100); POTASSIUM SERUM 3.7 MMOL/L (3.5-5.1); SODIUM LEVEL 139 MMOL/L (136-145)
[2024-01-09 17:30] LABS: HCG, SERUM QUALITATIVE NEGATIVE (NEGATIVE)
[2024-01-09 18:15] LABS: Trichomonas vaginalis (AMP) NOT DETECTED (NEGATIVE)
[2024-01-09 18:38] LABS: GC DNA AMPLIFICATION NEGATIVE (NEGATIVE)
[2024-01-09 19:06] LABS: GC DNA AMPLIFICATION NEGATIVE (NEGATIVE)
[2024-01-09 22:00] VITALS: BP 132/65; TEMP 98.6; O2SAT 97
[2024-01-09] MEDS ORDERED: HYDR0.5C8 TOP (22:04)
== END 2024-01-09 22:11 | disposition home or self-care (01) ==
LOC: M ED 15:47
DX: N83.291 Other ovarian cyst, right side (principal); N76.0 Acute vaginitis; Z79.899 Other long term (current) drug therapy

== ENCOUNTER 2024-05-06 14:38 | Emergency (ER) | payer OTHER ==
[~2024-05-06] VITALS: Ht 157.5 cm; Wt 75.4 kg
[~2024-05-06 14:38] MED LIST changes: +FLUO-365 PO; -FLUO20CA22 PO; +HYDR0.5C8 TOP
[2024-05-06 19:00] VITALS: BP 129/70; TEMP 97.8; O2SAT 98
== END 2024-05-06 20:09 | disposition home or self-care (01) ==
LOC: M ED 14:38
DX: R20.2 Paresthesia of skin (principal); Z79.899 Other long term (current) drug therapy